=== PATIENT | female | born 1955 | race African-American/Black ===

== ENCOUNTER 2017-03-23 06:36 | Inpatient (IN) | payer MEDICAID, OTHER ==
[~2017-03-23] VITALS: Ht 175.3 cm; Wt 99.8 kg
[~2017-03-23 06:36] MED LIST: AMIT25TA9 PO; ASPI-1160 PO; ATOR20TA65 PO; BENA40TA3 PO; CALC-4 PO; HYDR100T26 PO; IBUP100O19 PO; INDA2.5T5 PO; INSLAN SQ; INSU10VI2 SQ; LORA1TAB PO; METO25TA6 PO; NIFE90TA43 PO; SPIR25TA4 PO
[2017-03-23] MEDS ORDERED: SODIUM CHLORIDE 0.9% 1,000 ML IV ONE ×4 (07:06→10:46)
[2017-03-23 08:07] LABS: BASOPHILS % 0.2 % (0.0-2.0); EOSINOPHILS % 0.7 % (0.0-5.0); HEMATOCRIT. 41.2 % (36.0-48.0); HEMOGLOBIN. 13.7 g/dL (12.0-16.0); LYMPHOCYTES % 19.6 % (20.0-50.0); MEAN CORPUSCULAR HEMOGLOBIN 29.6 pg (28.0-32.0); MEAN PLATELET VOLUME 8.5 fl (7.4-10.4); NEUTROPHILS % 74.5 % (40.0-76.0); PLATELET 268 x1000/uL (130-400); RED BLOOD CELL COUNT 4.63 mill/uL (4.2-5.4); RED CELL DISTRIBUTION WIDTH 12.8 % (11.6-14.6)
[2017-03-23 08:15] LABS: PROTHROMBIN TIME 10.7 sec (9.4-11.6)
[2017-03-23 08:24] LABS: CARBON DIOXIDE 27 mEq/L (21-32); CHLORIDE 104 mEq/L (98-107)
[2017-03-23] MEDS ORDERED: VANCOMYCIN 1 G PREMIX 200 ML IV ONE (10:15)
[2017-03-23] MEDS ORDERED: PIPERACILLIN/TAZ 3.375G PREMIX 50 ML IV ONE (10:15)
[2017-03-23 10:48] LABS: CLARITY URINE CLEAR (CLEAR); COLOR URINE DARK YELLOW (YELLOW); GLUCOSE URINE 3+ (NEGATIVE); KETONES URINE NEGATIVE (NEGATIVE); LEUKOCYTE ESTERASE URINE NEGATIVE (NEGATIVE); NITRITE URINE NEGATIVE (NEGATIVE); OCCULT BLOOD URINE NEGATIVE (NEGATIVE); PROTEIN URINE 1+ (NEGATIVE); SPECIFIC GRAVITY URINE 1.022 (1.005-1.030)
[2017-03-23 16:17] VITALS: BP 152/79
[2017-03-23] MEDS ORDERED: BENA20TA3 PO (16:32)
[2017-03-23] MEDS ORDERED: FAMO20TA8 PO (16:34)
[2017-03-23] MEDS ORDERED: ATOR20TA65 PO (16:34)
[2017-03-23] MEDS ORDERED: GLIP10TA10 PO (16:36)
[2017-03-23 16:39] VITALS: BP 152/79
[2017-03-23] MEDS ORDERED: INFLUENZA VIRUS VACCINE 0.5ML SYR IM ONE (16:45)
[2017-03-23] MEDS ORDERED: DEXT 5%/0.45% NACL 1000ML 1,000 ML IV SCH (17:45)
[2017-03-23] MEDS ORDERED: MORPHINE SULFATE 2 MG/ML CPJ (NOT FOR IM USE) IV PRN (19:45)
[2017-03-23] MEDS ORDERED: DEXTROSE 50% WATER 50ML SYRINGE IV PRN (19:45)
[2017-03-23 20:00] VITALS: BP 158/93
[2017-03-23] MEDS ORDERED: LEVOFLOXACIN 500MG PREMIX 100 ML IV SCH (20:00)
[2017-03-23] MEDS: POTASSIUM CHLORIDE 10MEQ TABLET SR PO SCH (20:36)
[2017-03-23] MEDS: LOSARTAN POTASSIUM 50 MG TABLET PO SCH (20:37)
[2017-03-23] MEDS ORDERED: INSULIN LISPRO 100 UNITS/ML SUBCUT SCH (21:00)
[2017-03-23] MEDS ORDERED: INSULIN LISPRO 100 UNITS/ML SUBCUT NR (21:28)
[2017-03-23] MEDS: BLOOD SUGAR DIAGNOSTIC STRIP TEST SCH (21:32)
[2017-03-23] MEDS: METRONIDAZOLE 500MG TABLET PO SCH (21:41)
[2017-03-23] MEDS: ENOXAPARIN 30MG/0.3ML SYR SUBCUT SCH (21:43)
[2017-03-24] VITALS: BP 166/91
[2017-03-24] MEDS ORDERED: CLONIDINE 0.2MG TABLET PO PRN (01:15)
[2017-03-24 04:00] VITALS: BP 127/76
[2017-03-24] MEDS: METRONIDAZOLE 500MG TABLET PO SCH ×2 (06:59→13:46)
[2017-03-24] MEDS: BLOOD SUGAR DIAGNOSTIC STRIP TEST SCH ×3 (06:59→18:02)
[2017-03-24] MEDS ORDERED: INSULIN LISPRO 100 UNITS/ML SUBCUT NR (07:00)
[2017-03-24 07:05] LABS: BASOPHILS % 0.2 % (0.0-2.0); EOSINOPHILS % 0.1 % (0.0-5.0); HEMATOCRIT. 40.5 % (36.0-48.0); HEMOGLOBIN. 13.4 g/dL (12.0-16.0); LYMPHOCYTES % 16.1 % (20.0-50.0); MEAN CORPUSCULAR HEMOGLOBIN 29.5 pg (28.0-32.0); MEAN CORPUSCULAR VOLUME 89.4 fL (81.0-99.0); MEAN PLATELET VOLUME 8.9 fl (7.4-10.4); MONOCYTES % 7.8 % (2.0-8.0); NEUTROPHILS % 75.8 % (40.0-76.0); PLATELET 238 x1000/uL (130-400); RED BLOOD CELL COUNT 4.53 mill/uL (4.2-5.4); RED CELL DISTRIBUTION WIDTH 12.6 % (11.6-14.6)
[2017-03-24] MEDS: INSULIN LISPRO 100 UNITS/ML SUBCUT SCH ×3 (07:15→18:04)
[2017-03-24 07:54] LABS: CARBON DIOXIDE 27 mEq/L (21-32); CHLORIDE 96 mEq/L (98-107)
[2017-03-24 08:00] VITALS: BP 150/81
[2017-03-24] MEDS ORDERED: METOPROLOL TARTRATE 50MG TABLET PO SCH (09:00)
[2017-03-24] MEDS: ENOXAPARIN 30MG/0.3ML SYR SUBCUT SCH (09:30)
[2017-03-24] MEDS: LOSARTAN POTASSIUM 50 MG TABLET PO SCH ×2 (09:35→17:00)
[2017-03-24] MEDS: POTASSIUM CHLORIDE 10MEQ TABLET SR PO SCH (09:35)
[2017-03-24 12:00] VITALS: BP 116/70
[2017-03-24] MEDS ORDERED: INFLUENZA VIRUS VACCINE 0.5ML SYR IM ONE (14:00)
[2017-03-24 16:00] VITALS: BP 115/64
[2017-03-24 17:23] VITALS: BP 115/64
== END 2017-03-24 18:10 | disposition home or self-care (01) | DRG 720 ==
LOC: ER 06:36 → CANRESERV 09:58 → ENRESERV 09:58 → 5WST 11:41 → EDBEDREQ 11:43 → EDBEDREQTM 11:43 → EDBEDREQSVC 11:43 → ENRESERV 14:11
PROVIDERS: ADMIT Internal Medicine; ATTEND Internal Medicine
DX: A41.9 Sepsis, unspecified organism (principal); E11.65 Type 2 diabetes mellitus with hyperglycemia; I11.9 Hypertensive heart disease without heart failure; I25.10 Atherosclerotic heart disease of native coronary artery without angina pectoris; E78.00 Pure hypercholesterolemia, unspecified; K52.9 Noninfective gastroenteritis and colitis, unspecified; Z79.899 Other long term (current) drug therapy; Z79.82 Long term (current) use of aspirin; K92.1 Melena; D25.9 Leiomyoma of uterus, unspecified
CPT/HCPCS: 36415; 71010; 74176; 80053; 81001; 82962; 83605; 83690; 84443; 84484; 85025; 85610; 86850; 86870; 86900; 87040; 87493; 90686; 93005; 96361; 96365; 99291; J1650; J1815; J1956; J2270; J2543; J3370; J3490; J7030

== ENCOUNTER 2017-08-06 15:57 | Emergency (ER) | payer MEDICAID, OTHER ==
[~2017-08-06] VITALS: Ht 167.6 cm; Wt 90.0 kg
[~2017-08-06 15:57] MED LIST changes: -AMIT25TA9 PO; +BENA20TA3 PO; -BENA40TA3 PO; +FAMO20TA8 PO; +GLIP10TA10 PO; -IBUP100O19 PO; -INSLAN SQ; -LORA1TAB PO
[2017-08-06] MEDS ORDERED: SODIUM CHLORIDE 0.9% 1,000 ML IV ONE ×2 (17:00→17:15)
[2017-08-06 17:28] LABS: BASOPHILS % 0.9 % (0.0-2.0); EOSINOPHILS % 2.1 % (0.0-5.0); HEMATOCRIT. 35.3 % (36.0-48.0); HEMOGLOBIN. 12.1 g/dL (12.0-16.0); LYMPHOCYTES % 33.3 % (20.0-50.0); MEAN CORPUSCULAR HEMOGLOBIN 29.8 pg (28.0-32.0); MEAN PLATELET VOLUME 8.3 fl (7.4-10.4); MONOCYTES % 7.5 % (2.0-8.0); NEUTROPHILS % 56.2 % (40.0-76.0); PLATELET 283 x1000/uL (130-400); RED BLOOD CELL COUNT 4.06 mill/uL (4.2-5.4); RED CELL DISTRIBUTION WIDTH 12.5 % (11.6-14.6)
[2017-08-06 17:40] LABS: CHLORIDE 102 mEq/L (98-107)
[2017-08-06 17:46] LABS: BETA HYDROXYBUTYRATE 0.2 mMol/L (0.0-0.3)
[2017-08-06 18:12] LABS: CLARITY URINE CLEAR (CLEAR); COLOR URINE DARK YELLOW (YELLOW); KETONES URINE 1+ (NEGATIVE); LEUKOCYTE ESTERASE URINE TRACE (NEGATIVE); NITRITE URINE NEGATIVE (NEGATIVE); OCCULT BLOOD URINE NEGATIVE (NEGATIVE); PROTEIN URINE NEGATIVE (NEGATIVE); SPECIFIC GRAVITY URINE 1.028 (1.005-1.030)
[2017-08-06 19:39] VITALS: BP 139/81
== END 2017-08-06 21:16 | disposition home or self-care (01) ==
LOC: ER 16:09
DX: R05 Cough (principal); R10.13 Epigastric pain; R10.33 Periumbilical pain; R06.02 Shortness of breath; E11.65 Type 2 diabetes mellitus with hyperglycemia; I10 Essential (primary) hypertension; E78.00 Pure hypercholesterolemia, unspecified; Z79.82 Long term (current) use of aspirin; Z79.4 Long term (current) use of insulin
CPT/HCPCS: 36415; 71045; 80053; 81003; 82010; 82962; 83690; 84484; 85025; 96360; 96361; 99285; J7030; Z7610

== ENCOUNTER 2017-08-08 14:09 | Emergency (ER) | payer MEDICAID, OTHER ==
[~2017-08-08] VITALS: Ht 167.6 cm; Wt 110.0 kg
[2017-08-08 16:07] LABS: BASOPHILS % 0.9 % (0.0-2.0); EOSINOPHILS % 2.9 % (0.0-5.0); HEMATOCRIT. 35.5 % (36.0-48.0); HEMOGLOBIN. 11.8 g/dL (12.0-16.0); LYMPHOCYTES % 29.3 % (20.0-50.0); MEAN CORPUSCULAR HEMOGLOBIN 29.1 pg (28.0-32.0); MEAN CORPUSCULAR VOLUME 87.6 fL (81.0-99.0); MEAN PLATELET VOLUME 7.9 fl (7.4-10.4); MONOCYTES % 7.3 % (2.0-8.0); NEUTROPHILS % 59.6 % (40.0-76.0); PLATELET 286 x1000/uL (130-400); RED BLOOD CELL COUNT 4.05 mill/uL (4.2-5.4)
[2017-08-08 16:13] LABS: CHLORIDE 103 mEq/L (98-107)
[2017-08-08 16:29] LABS: PROTHROMBIN TIME 9.9 sec (9.4-11.6)
[2017-08-08] MEDS ORDERED: SODIUM CHLORIDE 0.9% 1,000 ML IV ONE (17:00)
[2017-08-08 17:17] LABS: CLARITY URINE CLEAR (CLEAR); COLOR URINE YELLOW (YELLOW); KETONES URINE NEGATIVE (NEGATIVE); LEUKOCYTE ESTERASE URINE NEGATIVE (NEGATIVE); NITRITE URINE NEGATIVE (NEGATIVE); OCCULT BLOOD URINE NEGATIVE (NEGATIVE); PH URINE 5.5 (4.5-8.0); PROTEIN URINE NEGATIVE (NEGATIVE); SPECIFIC GRAVITY URINE 1.031 (1.005-1.030); UROBILINOGEN URINE 0.2 E.U./dL (0.2-1.0)
[2017-08-08 18:50] VITALS: BP 148/82
== END 2017-08-08 18:58 | disposition home or self-care (01) ==
LOC: ER 14:21
DX: J06.9 Acute upper respiratory infection, unspecified (principal); E11.65 Type 2 diabetes mellitus with hyperglycemia; E11.22 Type 2 diabetes mellitus with diabetic chronic kidney disease; E78.00 Pure hypercholesterolemia, unspecified; I12.9 Hypertensive chronic kidney disease with stage 1 through stage 4 chronic kidney disease, or unspecified chronic kidney disease; I51.7 Cardiomegaly; N18.9 Chronic kidney disease, unspecified; B34.9 Viral infection, unspecified; D64.9 Anemia, unspecified; D72.829 Elevated white blood cell count, unspecified; I44.0 Atrioventricular block, first degree; Z79.4 Long term (current) use of insulin; Z79.82 Long term (current) use of aspirin
CPT/HCPCS: 36415; 71045; 80053; 81003; 83735; 83880; 84484; 85025; 85610; 93005; 96360; 99285; J7030; Z7610

== ENCOUNTER 2018-10-02 11:09 | Inpatient (IN) | payer OTHER ==
[~2018-10-02] VITALS: Ht 165.1 cm; Wt 99.8 kg
[~2018-10-02 11:09] MED LIST changes: +BENA20TA10 PO; -BENA20TA3 PO; +INSU100V3 SUBCUT; -INSU10VI2 SQ; +NPH,100V SQ; -SPIR25TA4 PO; +SPIR25TA6 PO
[2018-10-02] MEDS ORDERED: SODIUM CHLORIDE 0.9% 500 ML IV ONE (11:38)
[2018-10-02] MEDS ORDERED: ONDANSETRON HCL 4MG/2ML INJ IV STA (11:38)
[2018-10-02] MEDS ORDERED: HYDRALAZINE 20MG/ML VIAL IV ONE ×2 (11:45→17:15)
[2018-10-02 12:00] LABS: BASOPHILS % 0.4 % (0.0-2.0); EOSINOPHILS % 1.7 % (0.0-5.0); HEMOGLOBIN. 13.1 g/dL (12.0-16.0); LYMPHOCYTES % 30.2 % (20.0-50.0); MEAN CORPUSCULAR HEMOGLOBIN 28.2 pg (28.0-32.0); MEAN CORPUSCULAR VOLUME 86.1 fL (81.0-99.0); MEAN PLATELET VOLUME 8.5 fl (7.4-10.4); MONOCYTES % 6.3 % (2.0-8.0); NEUTROPHILS % 61.4 % (40.0-76.0); PLATELET 244 x1000/uL (130-400); RED BLOOD CELL COUNT 4.65 mill/uL (4.2-5.4); RED CELL DISTRIBUTION WIDTH 13.2 % (11.6-14.6)
[2018-10-02 12:01] LABS: CHLORIDE 105 mEq/L (98-107)
[2018-10-02 12:05] LABS: ETHANOL BLOOD < 10 mg/dL
[2018-10-02 12:15] LABS: INR 0.9; PARTIAL THROMBOPLASTIN TIME 43.4 sec (23.4-31.0); PROTHROMBIN TIME 9.8 sec (9.6-11.0)
[2018-10-02] MEDS ORDERED: POTASSIUM CHLORIDE 20MEQ TABLET SR PO ONE (13:15)
[2018-10-02] MEDS ORDERED: DILTIAZEM HCL 5MG/ML 5ML VIAL IV ONE (17:30)
[2018-10-02] MEDS ORDERED: DILTIAZEM HCL 30MG TABLET PO ONE (17:30)
[2018-10-02 18:07] LABS: CLARITY URINE CLEAR (CLEAR); COLOR URINE YELLOW (YELLOW); KETONES URINE 2+ (NEGATIVE); LEUKOCYTE ESTERASE URINE NEGATIVE (NEGATIVE); NITRITE URINE NEGATIVE (NEGATIVE); OCCULT BLOOD URINE NEGATIVE (NEGATIVE); PH URINE 5.5 (4.5-8.0); PROTEIN URINE 4+ (NEGATIVE); SPECIFIC GRAVITY URINE 1.026 (1.005-1.030); UROBILINOGEN URINE 0.2 E.U./dL (0.2-1.0)
[2018-10-02 18:25] LABS: *BARBITURATES SCREEN URINE NEGATIVE (NEGATIVE); *BENZODIAZEPINES SCREEN URINE NEGATIVE (NEGATIVE); *COCAINE SCREEN URINE NEGATIVE (NEGATIVE); METHADONE URINE SCREEN NEGATIVE (NEGATIVE); OPIATES URINE SCREEN NEGATIVE (NEGATIVE)
[2018-10-02 18:26] LABS: *AMPHETAMINES SCREEN URINE NEGATIVE (NEGATIVE); CANNABINOID URINE SCREEN NEGATIVE (NEGATIVE); PHENCYCLIDINE URINE SCREEN NEGATIVE (NEGATIVE)
[2018-10-02] MEDS ORDERED: ENOXAPARIN 40MG/0.4ML SYR SUBCUT SCH (22:00)
[2018-10-02] MEDS ORDERED: CLONIDINE 0.1MG TABLET PO PRN (22:00)
[2018-10-02] MEDS ORDERED: ONDANSETRON HCL 4MG/2ML INJ IV PRN (22:00)
[2018-10-02] MEDS ORDERED: DOCUSATE SODIUM 100MG CAPSULE PO PRN (22:00)
[2018-10-02 22:30] VITALS: BP 159/98
[2018-10-02] MEDS: DILTIAZEM HCL 60MG TABLET PO SCH (23:17)
[2018-10-02] MEDS: LEVOFLOXACIN 500MG PREMIX 100 ML IV SCH (23:35)
[2018-10-03] VITALS (7 sets, daily range): BP systolic 116–176; BP diastolic 55–75
[2018-10-03] MEDS ORDERED: DEXTROSE 50% WATER 50ML SYRINGE IV PRN (00:15)
[2018-10-03] MEDS: DILTIAZEM HCL 60MG TABLET PO SCH (05:23)
[2018-10-03 06:15] LABS: BASOPHILS % 0.5 % (0.0-2.0); EOSINOPHILS % 0.1 % (0.0-5.0); HEMATOCRIT. 36.8 % (36.0-48.0); HEMOGLOBIN. 12.1 g/dL (12.0-16.0); LYMPHOCYTES % 13.8 % (20.0-50.0); MEAN CORPUSCULAR VOLUME 88.4 fL (81.0-99.0); MEAN PLATELET VOLUME 9.1 fl (7.4-10.4); MONOCYTES % 5.2 % (2.0-8.0); NEUTROPHILS % 80.4 % (40.0-76.0); PLATELET 256 x1000/uL (130-400); RED BLOOD CELL COUNT 4.17 mill/uL (4.2-5.4)
[2018-10-03 06:39] LABS: CHLORIDE 101 mEq/L (98-107)
[2018-10-03 06:51] LABS: HDL CHOLESTEROL 54 mg/dL (40-59); T4 FREE 1.23 ng/dL (0.76-1.46)
[2018-10-03 06:53] LABS: LDL CHOLESTEROL 61 mg/dL (5-100)
[2018-10-03] MEDS: BLOOD SUGAR DIAGNOSTIC STRIP TEST SCH ×4 (06:53→20:45)
[2018-10-03] MEDS ORDERED: INSULIN LISPRO 100 UNITS/ML SUBCUT NR ×3 (07:15→21:15)
[2018-10-03] MEDS ORDERED: INSULIN LISPRO 100 UNITS/ML SUBCUT SCH (08:10)
[2018-10-03] MEDS: LOSARTAN POTASSIUM 50 MG TABLET PO SCH (09:04)
[2018-10-03] MEDS: ENOXAPARIN 30MG/0.3ML SYR SUBCUT SCH ×2 (09:04→21:25)
[2018-10-03] MEDS ORDERED: INSULIN GLARGINE UD 100 UNITS/ML SYR SUBCUT NR ×2 (13:00→19:00)
[2018-10-03] MEDS: DILTIAZEM HCL 90MG TABLET PO SCH ×2 (13:06→18:14)
[2018-10-03] MEDS: INSULIN LISPRO 100 UNITS/ML SUBCUT SCH ×3 (13:10→20:45)
[2018-10-03 20:40] LABS: CLARITY URINE CLEAR (CLEAR); COLOR URINE YELLOW (YELLOW); KETONES URINE 1+ (NEGATIVE); LEUKOCYTE ESTERASE URINE NEGATIVE (NEGATIVE); NITRITE URINE NEGATIVE (NEGATIVE); OCCULT BLOOD URINE NEGATIVE (NEGATIVE); PROTEIN URINE 4+ (NEGATIVE); SPECIFIC GRAVITY URINE 1.026 (1.005-1.030); UROBILINOGEN URINE 0.2 E.U./dL (0.2-1.0)
[2018-10-03] MEDS: LEVOFLOXACIN 500MG PREMIX 100 ML IV SCH (21:27)
[2018-10-04] VITALS: BP_SYST 124; BP_SYST 132; BP_DIAS 60; BP_DIAS 62; BP_DIAS 64
[2018-10-04] MEDS: DILTIAZEM HCL 90MG TABLET PO SCH ×4 (00:49→17:59)
[2018-10-04 04:00] VITALS: BP 128/65
[2018-10-04 06:26] LABS: BASOPHILS % 0.2 % (0.0-2.0); EOSINOPHILS % 2.9 % (0.0-5.0); HEMATOCRIT. 34.6 % (36.0-48.0); HEMOGLOBIN. 11.3 g/dL (12.0-16.0); LYMPHOCYTES % 39.2 % (20.0-50.0); MEAN CORPUSCULAR HEMOGLOBIN 28.3 pg (28.0-32.0); MEAN CORPUSCULAR VOLUME 86.6 fL (81.0-99.0); MEAN PLATELET VOLUME 8.9 fl (7.4-10.4); MONOCYTES % 8.4 % (2.0-8.0); NEUTROPHILS % 49.3 % (40.0-76.0); PLATELET 237 x1000/uL (130-400); RED CELL DISTRIBUTION WIDTH 13.1 % (11.6-14.6)
[2018-10-04] MEDS: BLOOD SUGAR DIAGNOSTIC STRIP TEST SCH ×3 (06:44→17:59)
[2018-10-04 06:49] LABS: PHOSPHORUS 2.8 mg/dL (2.5-4.9)
[2018-10-04] MEDS: INSULIN LISPRO 100 UNITS/ML SUBCUT SCH ×3 (07:24→18:21)
[2018-10-04 08:00] VITALS: BP_SYST 144; BP_SYST 151; BP_DIAS 71
[2018-10-04] MEDS: ENOXAPARIN 30MG/0.3ML SYR SUBCUT SCH (09:59)
[2018-10-04] MEDS: LOSARTAN POTASSIUM 50 MG TABLET PO SCH (09:59)
[2018-10-04] MEDS ORDERED: INSULIN GLARGINE UD 100 UNITS/ML SYR SUBCUT SCH (10:00)
[2018-10-04 12:00] VITALS: BP 169/62
[2018-10-04] MEDS ORDERED: MAGNESIUM 2 G PREMIX 50 ML IV SCH (12:00)
[2018-10-04] MEDS ORDERED: INSULIN LISPRO 100 UNITS/ML SUBCUT SCH (13:15)
[2018-10-04] MEDS ORDERED: INSULIN LISPRO 100 UNITS/ML SUBCUT NR (13:15)
[2018-10-04] MEDS ORDERED: INSULIN NPH (HUMULIN-N) 100 UNITS/ML 3ML VIAL SUBCUT SCH (14:30)
[2018-10-04 16:00] VITALS: BP 106/70
[2018-10-04] MEDS ORDERED: GLIPIZIDE 10MG TABLET PO SCH (17:00)
[2018-10-04 18:32] VITALS: BP 106/70
[2018-10-05 09:10] LABS: ALPHA-1-GLOBULIN 0.2 g/dL (0.0-0.4); ALPHA-2-GLOBULIN 0.9 g/dL (0.4-1.0); BETA GLOBULIN 1.1 g/dL (0.7-1.3); GAMMA GLOBULINS 0.7 g/dL (0.4-1.8); GLOBULIN TOTAL 2.9 g/dL (2.2-3.9); IMMUNOGLOBULIN A 374 mg/dL (87-352); IMMUNOGLOBULIN G 858 mg/dL (700-1600); IMMUNOGLOBULIN M 88 mg/dL (26-217); M-SPIKE Not Observed g/dL (Not Observed); TOTAL PROTEIN SERUM 5.9 g/dL (6.0-8.5)
[2018-10-05] MEDS ORDERED: INSULIN GLARGINE UD 100 UNITS/ML SYR SUBCUT SCH (10:00)
[2018-10-05 13:16] LABS: ALBUMIN URINE 69.8 % (.); ALPHA-1-GLOBULIN URINE 1.6 % (.); ALPHA-2-GLOBULIN URINE 8.6 % (.); BETA GLOBULIN URINE 9.9 % (.); GAMMA GLOBULIN URINE 10.1 % (.); TOTAL PROTEIN RANDOM URINE 511.2 mg/dL (Not Estab.)
[2018-10-06 08:24] LABS: COMPLEMENT C3 161 mg/dL (82-167)
== END 2018-10-04 19:08 | disposition home or self-care (01) | DRG 48 ==
LOC: ER 11:09 → EDBEDREQ 13:50 → CANBEDREQ 15:54 → 7WST 18:21 → ENRESERV 19:32
PROVIDERS: ADMIT Internal Medicine; ATTEND Internal Medicine
DX: G90.8 Other disorders of autonomic nervous system (principal); N17.9 Acute kidney failure, unspecified; E44.0 Moderate protein-calorie malnutrition; E11.21 Type 2 diabetes mellitus with diabetic nephropathy; E11.65 Type 2 diabetes mellitus with hyperglycemia; E87.6 Hypokalemia; I16.0 Hypertensive urgency; E66.01 Morbid (severe) obesity due to excess calories; E78.5 Hyperlipidemia, unspecified; I12.9 Hypertensive chronic kidney disease with stage 1 through stage 4 chronic kidney disease, or unspecified chronic kidney disease; N18.2 Chronic kidney disease, stage 2 (mild); I25.10 Atherosclerotic heart disease of native coronary artery without angina pectoris; D72.829 Elevated white blood cell count, unspecified; E78.00 Pure hypercholesterolemia, unspecified; R00.0 Tachycardia, unspecified; K58.9 Irritable bowel syndrome, unspecified; R74.8 Abnormal levels of other serum enzymes; Z82.49 Family history of ischemic heart disease and other diseases of the circulatory system; Z83.3 Family history of diabetes mellitus; Z79.899 Other long term (current) drug therapy; Z79.82 Long term (current) use of aspirin; Z79.4 Long term (current) use of insulin; I25.2 Old myocardial infarction; Z68.36 Body mass index [BMI] 36.0-36.9, adult
CPT/HCPCS: 36415; 71045; 76770; 80048; 80061; 80305; 80320; 82570; 82784; 82962; 83036; 83735; 83880; 84100; 84155; 84156; 84165; 84166; 84439; 84443; 84484; 85379; 86160; 86334; 93005; 93306; 93880; 96361; 96374; 96375; 97162; 99285; J0360; J1650; J1815; J1956; J2405; J3475; J3490; J7040; G0480

== ENCOUNTER 2019-03-08 22:40 | Emergency (ER) | payer OTHER ==
[~2019-03-08] VITALS: Ht 165.1 cm; Wt 127.0 kg
[~2019-03-08 22:40] MED LIST changes: -BENA20TA10 PO; -INDA2.5T5 PO; -NIFE90TA43 PO; -SPIR25TA6 PO
[2019-03-08] MEDS ORDERED: ONDANSETRON HCL 4MG/2ML INJ IV STA (23:10)
[2019-03-08] MEDS ORDERED: SODIUM CHLORIDE 0.9% 1,000 ML IV ONE (23:10)
[2019-03-08 23:59] LABS: BASOPHILS % 0.5 % (0.0-2.0); EOSINOPHILS % 0.7 % (0.0-5.0); HEMATOCRIT. 39.6 % (36.0-48.0); HEMOGLOBIN. 13.1 g/dL (12.0-16.0); LYMPHOCYTES % 13.7 % (20.0-50.0); MEAN CORPUSCULAR HEMOGLOBIN 29.2 pg (28.0-32.0); MEAN CORPUSCULAR VOLUME 88.3 fL (81.0-99.0); MEAN PLATELET VOLUME 8.8 fl (7.4-10.4); MONOCYTES % 3.8 % (2.0-8.0); NEUTROPHILS % 81.3 % (40.0-76.0); PLATELET 268 x1000/uL (130-400); RED BLOOD CELL COUNT 4.49 mill/uL (4.2-5.4); RED CELL DISTRIBUTION WIDTH 12.7 % (11.6-14.6)
[2019-03-09 00:05] LABS: CLARITY URINE CLEAR (CLEAR); COLOR URINE YELLOW (YELLOW); KETONES URINE NEGATIVE (NEGATIVE); LEUKOCYTE ESTERASE URINE 1+ (NEGATIVE); NITRITE URINE NEGATIVE (NEGATIVE); OCCULT BLOOD URINE NEGATIVE (NEGATIVE); PROTEIN URINE 3+ (NEGATIVE); SPECIFIC GRAVITY URINE 1.018 (1.005-1.030)
[2019-03-09 00:08] LABS: INR 0.9; PROTHROMBIN TIME 9.6 sec (9.6-11.0)
[2019-03-09 00:09] LABS: CHLORIDE 102 mEq/L (98-107)
[2019-03-09 04:05] VITALS: BP 161/70
== END 2019-03-09 04:10 | disposition home or self-care (01) ==
LOC: ER 22:40
DX: N39.0 Urinary tract infection, site not specified (principal); I25.119 Atherosclerotic heart disease of native coronary artery with unspecified angina pectoris; E11.9 Type 2 diabetes mellitus without complications; I10 Essential (primary) hypertension; I25.2 Old myocardial infarction; N28.9 Disorder of kidney and ureter, unspecified; F41.9 Anxiety disorder, unspecified; Z79.899 Other long term (current) drug therapy; Z79.4 Long term (current) use of insulin
CPT/HCPCS: 36415; 74176; 80053; 81003; 83690; 84484; 85025; 85610; 93005; 96374; 99284; J2405; J7030

== ENCOUNTER 2019-05-20 22:05 | Emergency (ER) | payer OTHER ==
[~2019-05-20] VITALS: Ht 162.6 cm; Wt 95.0 kg
[2019-05-20] MEDS ORDERED: SODIUM CHLORIDE 0.9% 1,000 ML IV ONE (23:24)
[2019-05-20 23:43] LABS: BASOPHILS % 0.6 % (0.0-2.0); EOSINOPHILS % 0.2 % (0.0-5.0); HEMATOCRIT. 39.5 % (36.0-48.0); HEMOGLOBIN. 13.2 g/dL (12.0-16.0); LYMPHOCYTES % 14.3 % (20.0-50.0); MEAN CORPUSCULAR HEMOGLOBIN 29.2 pg (28.0-32.0); MEAN CORPUSCULAR VOLUME 86.9 fL (81.0-99.0); MEAN PLATELET VOLUME 8.3 fl (7.4-10.4); NEUTROPHILS % 79.9 % (40.0-76.0); PLATELET 300 x1000/uL (130-400); RED BLOOD CELL COUNT 4.54 mill/uL (4.2-5.4)
[2019-05-20 23:50] LABS: CHLORIDE 104 mEq/L (98-107)
[2019-05-21 01:01] LABS: CLARITY URINE CLOUDY (CLEAR); COLOR URINE DARK YELLOW (YELLOW); KETONES URINE NEGATIVE (NEGATIVE); LEUKOCYTE ESTERASE URINE 1+ (NEGATIVE); NITRITE URINE NEGATIVE (NEGATIVE); OCCULT BLOOD URINE NEGATIVE (NEGATIVE); PROTEIN URINE 3+ (NEGATIVE); SPECIFIC GRAVITY URINE 1.024 (1.005-1.030)
[2019-05-21 09:24] VITALS: BP 153/70
== END 2019-05-21 09:42 | disposition short-term general hospital (02) ==
LOC: ER 22:05 → CANBEDREQ 05-21 13:23
DX: R56.9 Unspecified convulsions (principal); I11.0 Hypertensive heart disease with heart failure; I50.9 Heart failure, unspecified; E11.9 Type 2 diabetes mellitus without complications; D72.829 Elevated white blood cell count, unspecified; I25.2 Old myocardial infarction
CPT/HCPCS: 36415; 70450; 71045; 80053; 81003; 82962; 83605; 84484; 85025; 93005; 96360; 99291; J7030; Z7610

== ENCOUNTER 2020-06-28 16:27 | Inpatient (IN) | payer OTHER ==
[~2020-06-28] VITALS: Ht 165.1 cm; Wt 90.7 kg
[2020-06-28 17:13] LABS: BASOPHILS % 0.6 % (0.0-2.0); EOSINOPHILS % 2.3 % (0.0-5.0); HEMATOCRIT. 34.5 % (36.0-48.0); HEMOGLOBIN. 11.4 g/dL (12.0-16.0); MEAN CORPUSCULAR HEMOGLOBIN 28.6 pg (28.0-32.0); MEAN CORPUSCULAR VOLUME 86.2 fL (81.0-99.0); MEAN PLATELET VOLUME 8.4 fl (7.4-10.4); MONOCYTES % 7.1 % (2.0-8.0); PLATELET 315 x1000/uL (130-400); RED CELL DISTRIBUTION WIDTH 13.4 % (11.6-14.6)
[2020-06-28 17:15] LABS: CHLORIDE 105 mEq/L (98-107)
[2020-06-28 19:20] LABS: CLARITY URINE CLEAR (CLEAR); COLOR URINE YELLOW (YELLOW); KETONES URINE NEGATIVE (NEGATIVE); LEUKOCYTE ESTERASE URINE 1+ (NEGATIVE); NITRITE URINE NEGATIVE (NEGATIVE); OCCULT BLOOD URINE NEGATIVE (NEGATIVE); PH URINE 6.5 (4.5-8.0); PROTEIN URINE 4+ (NEGATIVE); SPECIFIC GRAVITY URINE 1.016 (1.005-1.030); UROBILINOGEN URINE 0.2 E.U./dL (0.2-1.0)
[2020-06-28] MEDS ORDERED: NITROFURANTOIN 100MG M/M CAPSULE PO NR (23:15)
[2020-06-28] MEDS ORDERED: POTASSIUM CHLORIDE 20MEQ TABLET SR PO NR (23:15)
[2020-06-29] VITALS (7 sets, daily range): BP systolic 127–182; BP diastolic 67–90
[2020-06-29] MEDS ORDERED: CLONIDINE 0.2MG TABLET PO PRN (03:30)
[2020-06-29] MEDS: BLOOD SUGAR DIAGNOSTIC STRIP TEST SCH ×5 (06:00→20:29)
[2020-06-29] MEDS: HYDRALAZINE HCL 50MG TABLET PO SCH ×3 (06:16→21:05)
[2020-06-29] MEDS ORDERED: ASPIRIN 81MG TABLET PO SCH (09:00)
[2020-06-29] MEDS ORDERED: HYDROCODONE/ACETAMINOPHEN 5/325MG TABLET PO PRN (10:15)
[2020-06-29] MEDS ORDERED: NITROGLYCERIN 0.4MG TABLET SL SL PRN (10:15)
[2020-06-29] MEDS ORDERED: CEFTRIAXONE 1 G PREMIX 50 ML IV SCH (10:15)
[2020-06-29] MEDS ORDERED: ACETAMINOPHEN 650MG SUPP PR PRN (10:15)
[2020-06-29] MEDS ORDERED: BISACODYL 10MG SUPP PR PRN (10:15)
[2020-06-29] MEDS ORDERED: LORAZEPAM 2MG/ML CPJ IV PRN (10:15)
[2020-06-29] MEDS ORDERED: ACETAMINOPHEN 325MG TABLET PO PRN (10:15)
[2020-06-29] MEDS ORDERED: HYDRALAZINE 20MG/ML VIAL IV PRN (10:15)
[2020-06-29] MEDS ORDERED: IPRATROPIUM/ALBUTEROL 0.5-3(2.5)MG/3ML NEB HHN PRN (10:15)
[2020-06-29] MEDS: ASPIRIN 81MG TABLET PO SCH (10:25)
[2020-06-29] MEDS: PANTOPRAZOLE SODIUM 40 MG/VIAL IV SCH (10:25)
[2020-06-29] MEDS: ENOXAPARIN 30MG/0.3ML SYR SUBCUT SCH (10:25)
[2020-06-29] MEDS ORDERED: ALLO100T MT (11:39)
[2020-06-29] MEDS ORDERED: OMEP20CA14 MT (11:39)
[2020-06-29] MEDS ORDERED: MAGN200T5 PO (11:39)
[2020-06-29] MEDS ORDERED: TELM40TA7 MT (11:39)
[2020-06-29] MEDS ORDERED: AMIT25TA9 MT (11:39)
[2020-06-29] MEDS ORDERED: AMLO10TA80 PO (11:39)
[2020-06-29] MEDS ORDERED: FURO40TA5 PO (11:39)
[2020-06-29 11:46] LABS: BG BASE EXCESS 3.9 mmol/L (-2.0-2.0); BG CARBOXYHEMOGLOBIN 0.3 % (0.5-1.5); BG DEOXYHEMOGLOBIN 4.4 % (0.0-5.0); BG FRACTION INSPIRED OXYGEN 21; BG HCO3 ACT 28.7 mmol/L (22.0-26.0); BG METHEMOGLOBIN 0.1 % (0.0-1.5); BG OXYGEN SATURATION 95.6 % (92.0-98.5); BG OXYHEMOGLOBIN 95.2 % (94.0-97.0); BG PCO2 43.9 mmHg (35.0-45.0); BG PH 7.433 (7.350-7.450); BG SAMPLE SITE RIGHT RADIAL; BG TOTAL HEMOGLOBIN 11.9 g/dL (12.0-18.0); BG VENT MODE ROOM AIR
[2020-06-29] MEDS: CEFTRIAXONE 1,000 MG in DEXTROSE 5% WATER 50 ML IV SCH (11:58)
[2020-06-29] MEDS: INSULIN LISPRO 100 UNITS/ML SUBCUT SCH ×3 (11:58→20:36)
[2020-06-29] MEDS ORDERED: DEXTROSE 50% WATER 50ML SYRINGE IV PRN (12:00)
[2020-06-29] MEDS ORDERED: REGADENOSON 0.4 MG/5 ML IV SCH (12:30)
[2020-06-29] MEDS: AMLODIPINE 10MG TABLET PO SCH (14:53)
[2020-06-29] MEDS: ALLOPURINOL 100 MG TABLET PO SCH (14:54)
[2020-06-29 15:29] LABS: BASOPHILS % 0.7 % (0.0-2.0); EOSINOPHILS % 2.7 % (0.0-5.0); HEMATOCRIT. 32.9 % (36.0-48.0); HEMOGLOBIN. 10.6 g/dL (12.0-16.0); LYMPHOCYTES % 30.6 % (20.0-50.0); MEAN CORPUSCULAR VOLUME 86.7 fL (81.0-99.0); MEAN PLATELET VOLUME 8.7 fl (7.4-10.4); MONOCYTES % 7.1 % (2.0-8.0); NEUTROPHILS % 58.9 % (40.0-76.0); PLATELET 304 x1000/uL (130-400); RED BLOOD CELL COUNT 3.79 mill/uL (4.2-5.4); RED CELL DISTRIBUTION WIDTH 13.4 % (11.6-14.6)
[2020-06-29 15:45] LABS: CHLORIDE 104 mEq/L (98-107)
[2020-06-29 15:53] LABS: D-DIMER 0.98 mg/L FEU (<0.50); LDL CHOLESTEROL 70 mg/dL (5-100); PROTHROMBIN TIME 10.8 sec (9.6-11.0)
[2020-06-29 15:55] LABS: HDL CHOLESTEROL 39 mg/dL (40-59); T4 FREE 1.21 ng/dL (0.76-1.46)
[2020-06-29] MEDS: CALCIUM CARBONATE/VITAMIN D3 500MG TABLET PO SCH (17:49)
[2020-06-29 19:42] LABS: *BENZODIAZEPINES SCREEN URINE NEGATIVE (NEGATIVE); *COCAINE SCREEN URINE NEGATIVE (NEGATIVE); METHADONE URINE SCREEN NEGATIVE (NEGATIVE); OPIATES URINE SCREEN NEGATIVE (NEGATIVE)
[2020-06-29 19:43] LABS: *AMPHETAMINES SCREEN URINE NEGATIVE (NEGATIVE); *BARBITURATES SCREEN URINE NEGATIVE (NEGATIVE); CANNABINOID URINE SCREEN NEGATIVE (NEGATIVE); PHENCYCLIDINE URINE SCREEN NEGATIVE (NEGATIVE)
[2020-06-29] MEDS: AMITRIPTYLINE 25MG TABLET PO SCH (20:44)
[2020-06-29] MEDS: ATORVASTATIN CALCIUM 20MG TABLET PO SCH (20:44)
[2020-06-29] MEDS ORDERED: ATORVASTATIN CALCIUM 20MG TABLET PO SCH (21:00)
[2020-06-30] VITALS: BP 138/76
[2020-06-30 04:00] VITALS: BP 151/57
[2020-06-30] MEDS: HYDRALAZINE HCL 50MG TABLET PO SCH ×3 (05:49→21:24)
[2020-06-30] MEDS: DEXT 5%/0.45% NACL 1000ML 1,000 ML IV SCH ×2 (06:04→20:08)
[2020-06-30] MEDS: BLOOD SUGAR DIAGNOSTIC STRIP TEST SCH ×4 (06:47→21:24)
[2020-06-30] MEDS: INSULIN LISPRO 100 UNITS/ML SUBCUT SCH ×4 (06:51→17:48)
[2020-06-30 08:00] VITALS: BP 137/68
[2020-06-30] MEDS ORDERED: MAGNESIUM 400 MG PO SCH (09:00)
[2020-06-30] MEDS: ALLOPURINOL 100 MG TABLET PO SCH (09:35)
[2020-06-30] MEDS: AMLODIPINE 10MG TABLET PO SCH (09:36)
[2020-06-30] MEDS: CALCIUM CARBONATE/VITAMIN D3 500MG TABLET PO SCH ×2 (09:36→17:47)
[2020-06-30] MEDS: PANTOPRAZOLE SODIUM 40 MG/VIAL IV SCH (09:36)
[2020-06-30] MEDS: ASPIRIN 81MG TABLET PO SCH (09:36)
[2020-06-30] MEDS: ENOXAPARIN 30MG/0.3ML SYR SUBCUT SCH (09:36)
[2020-06-30] MEDS: MAGNESIUM OXIDE 400MG TABLET PO SCH (09:36)
[2020-06-30] MEDS ORDERED: INSULIN GLARGINE UD 100 UNITS/ML SYR SUBCUT SCH (10:00)
[2020-06-30] MEDS: CEFTRIAXONE 1,000 MG in DEXTROSE 5% WATER 50 ML IV SCH (10:39)
[2020-06-30 12:03] VITALS: BP 152/78
[2020-06-30 16:28] VITALS: BP 123/71
[2020-06-30] MEDS ORDERED: INSU100I32 SQ (18:01)
[2020-06-30] MEDS ORDERED: INSU100I24 SQ (18:01)
[2020-06-30 20:00] VITALS: BP 174/79
[2020-06-30] MEDS: ATORVASTATIN CALCIUM 20MG TABLET PO SCH (21:23)
[2020-06-30] MEDS: AMITRIPTYLINE 25MG TABLET PO SCH (21:23)
[2020-06-30] MEDS: CLONIDINE 0.2MG TABLET PO PRN (21:23)
[2020-06-30] MEDS ORDERED: INSULIN LISPRO 100 UNITS/ML SUBCUT ONE (21:30)
[2020-06-30] MEDS: FUROSEMIDE 40MG TABLET PO SCH (21:38)
[2020-07-01] VITALS: BP 157/76
[2020-07-01 04:00] VITALS: BP 134/73
[2020-07-01] MEDS: FUROSEMIDE 40MG TABLET PO SCH (06:12)
[2020-07-01] MEDS: HYDRALAZINE HCL 50MG TABLET PO SCH ×3 (06:12→21:26)
[2020-07-01] MEDS: BLOOD SUGAR DIAGNOSTIC STRIP TEST SCH ×4 (06:12→21:26)
[2020-07-01] MEDS ORDERED: INSULIN LISPRO 100 UNITS/ML SUBCUT SCH (06:45)
[2020-07-01 08:14] VITALS: BP 142/72
[2020-07-01] MEDS ORDERED: REGADENOSON 0.4 MG/5 ML IV ONE (08:39)
[2020-07-01] MEDS ORDERED: LIDOCAINE HCL/PF 1% 2ML VIAL ONE (09:30)
[2020-07-01] MEDS: PANTOPRAZOLE SODIUM 40 MG/VIAL IV SCH (10:24)
[2020-07-01] MEDS: ASPIRIN 81MG TABLET PO SCH (10:24)
[2020-07-01] MEDS: ALLOPURINOL 100 MG TABLET PO SCH (10:24)
[2020-07-01] MEDS: AMLODIPINE 10MG TABLET PO SCH (10:24)
[2020-07-01] MEDS: MAGNESIUM OXIDE 400MG TABLET PO SCH (10:24)
[2020-07-01] MEDS: CALCIUM CARBONATE/VITAMIN D3 500MG TABLET PO SCH ×2 (10:24→17:15)
[2020-07-01] MEDS: ENOXAPARIN 30MG/0.3ML SYR SUBCUT SCH (10:25)
[2020-07-01] MEDS: CEFTRIAXONE 1,000 MG in DEXTROSE 5% WATER 50 ML IV SCH (10:25)
[2020-07-01] MEDS: INSULIN LISPRO 100 UNITS/ML SUBCUT SCH ×4 (10:28→21:28)
[2020-07-01] MEDS: INSULIN GLARGINE UD 100 UNITS/ML SYR SUBCUT SCH ×2 (10:29→21:28)
[2020-07-01 12:30] VITALS: BP 136/65
[2020-07-01 12:31] LABS: BG BASE EXCESS 1.7 mmol/L (-2.0-2.0); BG CARBOXYHEMOGLOBIN 0.3 % (0.5-1.5); BG DEOXYHEMOGLOBIN 4.7 % (0.0-5.0); BG FRACTION INSPIRED OXYGEN 21; BG HCO3 ACT 26.4 mmol/L (22.0-26.0); BG METHEMOGLOBIN 0.1 % (0.0-1.5); BG OXYGEN SATURATION 95.3 % (92.0-98.5); BG OXYHEMOGLOBIN 94.9 % (94.0-97.0); BG PCO2 42.1 mmHg (35.0-45.0); BG PH 7.416 (7.350-7.450); BG PO2 79.3 mmHg (75.0-100.0); BG SAMPLE SITE RIGHT BRACHIAL; BG TOTAL HEMOGLOBIN 11.4 g/dL (12.0-18.0); BG VENT MODE ROOM AIR
[2020-07-01] MEDS ORDERED: LEVOFLOXACIN 500MG PREMIX 100 ML IV NR (13:00)
[2020-07-01 15:10] LABS: BASOPHILS % 0.4 % (0.0-2.0); EOSINOPHILS % 2.5 % (0.0-5.0); HEMATOCRIT. 31.7 % (36.0-48.0); HEMOGLOBIN. 10.5 g/dL (12.0-16.0); LYMPHOCYTES % 22.4 % (20.0-50.0); MEAN CORPUSCULAR HEMOGLOBIN 28.5 pg (28.0-32.0); MEAN PLATELET VOLUME 8.8 fl (7.4-10.4); NEUTROPHILS % 67.7 % (40.0-76.0); PLATELET 318 x1000/uL (130-400); RED BLOOD CELL COUNT 3.69 mill/uL (4.2-5.4); RED CELL DISTRIBUTION WIDTH 13.1 % (11.6-14.6)
[2020-07-01 15:26] LABS: CHLORIDE 104 mEq/L (98-107)
[2020-07-01] MEDS ORDERED: POTASSIUM CHLORIDE 20MEQ TABLET SR PO NR (16:00)
[2020-07-01 16:08] VITALS: BP 135/68
[2020-07-01] MEDS: FUROSEMIDE 40MG/4ML VIAL IVP SCH (17:14)
[2020-07-01] MEDS ORDERED: IPRATROPIUM/ALBUTEROL 0.5-3(2.5)MG/3ML NEB HHN SCH (18:00)
[2020-07-01 20:00] VITALS: BP 152/76
[2020-07-01] MEDS: AMITRIPTYLINE 25MG TABLET PO SCH (21:26)
[2020-07-01] MEDS: ATORVASTATIN CALCIUM 20MG TABLET PO SCH (21:26)
[2020-07-02] VITALS: BP 155/76
[2020-07-02 04:00] VITALS: BP 151/76
[2020-07-02] MEDS: HYDRALAZINE HCL 50MG TABLET PO SCH ×2 (06:25→13:44)
[2020-07-02] MEDS: FUROSEMIDE 40MG/4ML VIAL IVP SCH (06:25)
[2020-07-02] MEDS: BLOOD SUGAR DIAGNOSTIC STRIP TEST SCH ×2 (06:25→12:37)
[2020-07-02 07:01] LABS: BASOPHILS % 0.4 % (0.0-2.0); EOSINOPHILS % 3.4 % (0.0-5.0); HEMATOCRIT. 31.9 % (36.0-48.0); HEMOGLOBIN. 10.5 g/dL (12.0-16.0); LYMPHOCYTES % 27.9 % (20.0-50.0); MEAN CORPUSCULAR VOLUME 85.4 fL (81.0-99.0); MEAN PLATELET VOLUME 8.5 fl (7.4-10.4); MONOCYTES % 6.5 % (2.0-8.0); NEUTROPHILS % 61.8 % (40.0-76.0); PLATELET 297 x1000/uL (130-400); RED BLOOD CELL COUNT 3.74 mill/uL (4.2-5.4); RED CELL DISTRIBUTION WIDTH 13.5 % (11.6-14.6)
[2020-07-02 08:00] VITALS: BP 126/92
[2020-07-02] MEDS ORDERED: ENOXAPARIN 40MG/0.4ML SYR SUBCUT SCH (09:00)
[2020-07-02] MEDS ORDERED: FAMOTIDINE 20MG/2ML VIAL IV SCH (09:00)
[2020-07-02] MEDS: MAGNESIUM OXIDE 400MG TABLET PO SCH (09:38)
[2020-07-02] MEDS: ASPIRIN 81MG TABLET PO SCH (09:38)
[2020-07-02] MEDS: AMLODIPINE 10MG TABLET PO SCH (09:38)
[2020-07-02] MEDS: CALCIUM CARBONATE/VITAMIN D3 500MG TABLET PO SCH (09:38)
[2020-07-02] MEDS: ALLOPURINOL 100 MG TABLET PO SCH (09:39)
[2020-07-02] MEDS: INSULIN LISPRO 100 UNITS/ML SUBCUT SCH ×2 (09:40→12:38)
[2020-07-02] MEDS: INSULIN GLARGINE UD 100 UNITS/ML SYR SUBCUT SCH (10:57)
[2020-07-02 11:52] VITALS: BP 155/80
[2020-07-02] MEDS ORDERED: FURO-151 MT (11:54)
[2020-07-02] MEDS ORDERED: LEVO250T58 MT (11:54)
[2020-07-02] MEDS ORDERED: ASPI-1497 MT (11:54)
[2020-07-02 12:00] VITALS: BP 170/83
[2020-07-02] MEDS: CLONIDINE 0.2MG TABLET PO PRN (12:39)
[2020-07-02] MEDS ORDERED: LEVOFLOXACIN 250MG PREMIX 50 ML IV SCH (14:00)
[2020-07-02 16:03] VITALS: BP 155/80
[2020-07-03] MEDS ORDERED: LEVOFLOXACIN 250MG TABLET PO SCH (11:00)
== END 2020-07-02 17:27 | disposition home or self-care (01) | DRG 203 ==
LOC: ER 16:27 → MICUSO 20:02 → 6WST 06-29 08:24
PROVIDERS: ADMIT Internal Medicine; ATTEND Internal Medicine
DX: M94.0 Chondrocostal junction syndrome [Tietze] (principal); I13.0 Hypertensive heart and chronic kidney disease with heart failure and stage 1 through stage 4 chronic kidney disease, or unspecified chronic kidney disease; I50.33 Acute on chronic diastolic (congestive) heart failure; N39.0 Urinary tract infection, site not specified; E78.5 Hyperlipidemia, unspecified; E87.6 Hypokalemia; N18.9 Chronic kidney disease, unspecified; E11.22 Type 2 diabetes mellitus with diabetic chronic kidney disease; E11.65 Type 2 diabetes mellitus with hyperglycemia; E88.09 Other disorders of plasma-protein metabolism, not elsewhere classified; E66.01 Morbid (severe) obesity due to excess calories; D64.9 Anemia, unspecified; Z20.822 Contact with and (suspected) exposure to COVID-19; M10.9 Gout, unspecified; R06.03 Acute respiratory distress; I25.10 Atherosclerotic heart disease of native coronary artery without angina pectoris; J06.9 Acute upper respiratory infection, unspecified; I25.2 Old myocardial infarction; Z79.82 Long term (current) use of aspirin; Z79.899 Other long term (current) drug therapy; Z68.33 Body mass index [BMI] 33.0-33.9, adult; Z79.4 Long term (current) use of insulin; E44.1 Mild protein-calorie malnutrition
CPT/HCPCS: 36415; 36600; 71045; 73600; 78452; 78582; 80048; 80053; 80061; 80305; 81003; 82375; 82805; 82962; 83036; 83880; 84439; 84443; 84484; 84550; 85025; 85379; 87426; 93005; 93017; 93306; 93970; 97116; 97162; 99285; A9500; A9558; C9113; J0696; J1650; J1815; J1940; J1956; J2785; J3490; J7060

== ENCOUNTER 2021-08-17 14:17 | Inpatient (IN) | payer MEDICARE, MEDICAID ==
[~2021-08-17] VITALS: Ht 165.1 cm; Wt 90.9 kg
[~2021-08-17 14:17] MED LIST changes: +ALLO100T MT; +AMIT25TA9 MT; +AMLO10TA80 PO; +ASPI-1497 MT; +FURO-151 MT; +INSU100I24 SQ; +INSU100I32 SQ; -INSU100V3 SUBCUT; +LEVO250T58 MT; +MAGN200T5 PO; -METO25TA6 PO; +OMEP20CA14 MT; +TELM40TA7 MT
[2021-08-17] MEDS ORDERED: ASPIRIN 81MG TABLET PO ONE (15:00)
[2021-08-17] MEDS ORDERED: NITROGLYCERIN 0.4MG TABLET SL SL PRN (15:00)
[2021-08-17 15:15] LABS: CHLORIDE 97 mEq/L (98-107)
[2021-08-17 15:20] LABS: BASOPHILS % 0.9 % (0.0-2.0); EOSINOPHILS % 0.8 % (0.0-5.0); HEMATOCRIT. 33.7 % (36.0-48.0); MEAN CORPUSCULAR HEMOGLOBIN 29.6 pg (28.0-32.0); MEAN CORPUSCULAR VOLUME 90.4 fL (81.0-99.0); MEAN PLATELET VOLUME 9.2 fl (7.4-10.4); MONOCYTES % 5.9 % (2.0-8.0); NEUTROPHILS % 61.4 % (40.0-76.0); PLATELET 307 x1000/uL (130-400); RED BLOOD CELL COUNT 3.73 mill/uL (4.2-5.4); RED CELL DISTRIBUTION WIDTH 13.1 % (11.6-14.6)
[2021-08-17] MEDS ORDERED: KCL 20MEQ/100ML PREMIX 100 ML IV ONE (16:00)
[2021-08-17] MEDS ORDERED: ENOXAPARIN 60MG/0.6ML SYR SUBCUT NR (19:00)
[2021-08-17] MEDS ORDERED: MAGNESIUM OXIDE 400MG TABLET PO SCH (19:00)
[2021-08-17 21:30] VITALS: BP 119/66
[2021-08-17 22:00] VITALS: BP 166/70
[2021-08-18] VITALS (13 sets, daily range): BP systolic 111–181; BP diastolic 67–94
[2021-08-18 00:14] LABS: CLARITY URINE CLEAR (CLEAR); COLOR URINE YELLOW (YELLOW); KETONES URINE NEGATIVE (NEGATIVE); LEUKOCYTE ESTERASE URINE NEGATIVE (NEGATIVE); NITRITE URINE NEGATIVE (NEGATIVE); OCCULT BLOOD URINE NEGATIVE (NEGATIVE); PROTEIN URINE 4+ (NEGATIVE); SPECIFIC GRAVITY URINE 1.018 (1.005-1.030); UROBILINOGEN URINE 0.2 E.U./dL (0.2-1.0)
[2021-08-18 00:25] LABS: *AMPHETAMINES SCREEN URINE NEGATIVE (NEGATIVE); *BARBITURATES SCREEN URINE NEGATIVE (NEGATIVE); *BENZODIAZEPINES SCREEN URINE NEGATIVE (NEGATIVE); *COCAINE SCREEN URINE NEGATIVE (NEGATIVE); METHADONE URINE SCREEN NEGATIVE (NEGATIVE)
[2021-08-18 00:26] LABS: CANNABINOID URINE SCREEN NEGATIVE (NEGATIVE); OPIATES URINE SCREEN NEGATIVE (NEGATIVE); PHENCYCLIDINE URINE SCREEN NEGATIVE (NEGATIVE)
[2021-08-18] MEDS ORDERED: POTASSIUM CHLORIDE 20MEQ TABLET SR PO SCH ×3 (01:00→08:30)
[2021-08-18] MEDS ORDERED: DEXTROSE 50% WATER 50ML SYRINGE IV PRN (01:00)
[2021-08-18] MEDS: CLONIDINE 0.1MG TABLET PO PRN (01:56)
[2021-08-18 03:35] LABS: BASOPHILS % 0.6 % (0.0-2.0); EOSINOPHILS % 0.9 % (0.0-5.0); HEMATOCRIT. 27.3 % (36.0-48.0); HEMOGLOBIN. 9.3 g/dL (12.0-16.0); LYMPHOCYTES % 29.6 % (20.0-50.0); MEAN CORPUSCULAR HEMOGLOBIN 30.1 pg (28.0-32.0); MEAN CORPUSCULAR VOLUME 88.7 fL (81.0-99.0); MEAN PLATELET VOLUME 9.1 fl (7.4-10.4); MONOCYTES % 5.9 % (2.0-8.0); PLATELET 238 x1000/uL (130-400); RED BLOOD CELL COUNT 3.08 mill/uL (4.2-5.4); RED CELL DISTRIBUTION WIDTH 13.1 % (11.6-14.6)
[2021-08-18 03:43] LABS: CREATINE KINASE MB FRACTION 3.5 ng/mL (0.5-3.6)
[2021-08-18] MEDS: PANTOPRAZOLE 40MG DR TABLET PO SCH (06:52)
[2021-08-18] MEDS: BLOOD SUGAR DIAGNOSTIC STRIP TEST SCH ×4 (06:53→21:32)
[2021-08-18] MEDS ORDERED: INSULIN LISPRO 100 UNITS/ML SUBCUT SCH ×2 (07:20)
[2021-08-18] MEDS ORDERED: MAGNESIUM OXIDE 400MG TABLET PO SCH (09:00)
[2021-08-18] MEDS ORDERED: INSU100V34 SQ (09:16)
[2021-08-18] MEDS ORDERED: NITR0.4T49 SL (09:16)
[2021-08-18] MEDS ORDERED: ONDA4TAB5 PO (09:16)
[2021-08-18] MEDS ORDERED: ISOS60TA76 PO (09:16)
[2021-08-18] MEDS ORDERED: METO2.5T2 PO (09:16)
[2021-08-18] MEDS ORDERED: DOCU100T PO (09:16)
[2021-08-18] MEDS ORDERED: INSU100I24 SQ (09:16)
[2021-08-18] MEDS ORDERED: METO-539 PO (09:16)
[2021-08-18] MEDS: HEPARIN 5000 UNITS/ML VIAL SUBCUT SCH ×2 (09:34→21:31)
[2021-08-18] MEDS ORDERED: POTASSIUM CHLORIDE 20MEQ TABLET SR PO NR (11:00)
[2021-08-18] MEDS ORDERED: CEFTRIAXONE 1 G PREMIX 50 ML IV SCH (11:15)
[2021-08-18] MEDS ORDERED: INSULIN LISPRO 100 UNITS/ML SUBCUT NR (11:15)
[2021-08-18 11:34] LABS: BG BASE EXCESS 0.2 mmol/L (-2.0-2.0); BG CARBOXYHEMOGLOBIN 0.3 % (0.5-1.5); BG HCO3 ACT 24.7 mmol/L (22.0-26.0); BG METHEMOGLOBIN 0.3 % (0.0-1.5); BG OXYHEMOGLOBIN 94.4 % (94.0-97.0); BG PCO2 39.6 mmHg (35.0-45.0); BG PH 7.413 (7.350-7.450); BG PO2 79.2 mmHg (75.0-100.0); BG SAMPLE SITE RIGHT BRACHIAL; BG TOTAL HEMOGLOBIN 11.4 g/dL (12.0-18.0); BG VENT MODE ROOM AIR
[2021-08-18] MEDS: NEBIVOLOL HCL 5 MG TABLET PO SCH (11:43)
[2021-08-18] MEDS: AMLODIPINE 5MG TABLET PO SCH (11:44)
[2021-08-18] MEDS: INSULIN LISPRO 100 UNITS/ML SUBCUT SCH ×3 (12:44→21:00)
[2021-08-18 12:50] LABS: PROTHROMBIN TIME 10.4 sec (9.6-11.0)
[2021-08-18] MEDS ORDERED: INSULIN GLARGINE 100 UNITS/ML SUBCUT NR (13:00)
[2021-08-18] MEDS: CEFTRIAXONE 1,000 MG in DEXTROSE 5% WATER 50 ML IV SCH (13:43)
[2021-08-18] MEDS ORDERED: HYDROCODONE/ACETAMINOPHEN 5/325MG TABLET PO PRN (13:45)
[2021-08-18] MEDS ORDERED: ONDANSETRON HCL 4MG/2ML INJ IV PRN (13:45)
[2021-08-18] MEDS ORDERED: BISACODYL 10MG SUPP PR PRN (13:45)
[2021-08-18] MEDS ORDERED: IPRATROPIUM/ALBUTEROL 0.5-3(2.5)MG/3ML NEB HHN PRN (13:45)
[2021-08-18 17:12] LABS: HEMATOCRIT 31.1 % (36.0-48.0); HEMOGLOBIN 10.4 g/dL (12.0-16.0)
[2021-08-18 17:43] LABS: TOTAL IRON BINDING CAPACITY 169 ug/dL (250-450)
[2021-08-18] MEDS: INSULIN GLARGINE 100 UNITS/ML SUBCUT SCH (21:32)
[2021-08-18] MEDS: ATORVASTATIN CALCIUM 20MG TABLET PO SCH (21:33)
[2021-08-19] VITALS (18 sets, daily range): BP systolic 119–189; BP diastolic 51–91
[2021-08-19] MEDS: PANTOPRAZOLE 40MG DR TABLET PO SCH (06:22)
[2021-08-19] MEDS: CLONIDINE 0.1MG TABLET PO PRN ×2 (06:26→16:35)
[2021-08-19] MEDS: BLOOD SUGAR DIAGNOSTIC STRIP TEST SCH ×4 (06:54→20:47)
[2021-08-19] MEDS: INSULIN LISPRO 100 UNITS/ML SUBCUT SCH ×4 (07:20→20:48)
[2021-08-19 08:17] LABS: PHOSPHORUS 2.8 mg/dL (2.5-4.9)
[2021-08-19 08:23] LABS: BASOPHILS % 0.4 % (0.0-2.0); EOSINOPHILS % 3.3 % (0.0-5.0); HEMATOCRIT. 31.7 % (36.0-48.0); HEMOGLOBIN. 10.6 g/dL (12.0-16.0); LYMPHOCYTES % 34.5 % (20.0-50.0); MEAN CORPUSCULAR VOLUME 89.2 fL (81.0-99.0); MONOCYTES % 5.4 % (2.0-8.0); NEUTROPHILS % 56.4 % (40.0-76.0); PLATELET 274 x1000/uL (130-400); RED BLOOD CELL COUNT 3.55 mill/uL (4.2-5.4); RED CELL DISTRIBUTION WIDTH 13.3 % (11.6-14.6)
[2021-08-19] MEDS ORDERED: REGADENOSON 0.4 MG/5 ML IV ONE ×2 (08:30→08:46)
[2021-08-19] MEDS ORDERED: POTASSIUM CHLORIDE 20MEQ TABLET SR PO NR (09:30)
[2021-08-19] MEDS ORDERED: MAGNESIUM 2 G PREMIX 50 ML IV NR (11:00)
[2021-08-19] MEDS: NEBIVOLOL HCL 5 MG TABLET PO SCH (11:06)
[2021-08-19] MEDS: FUROSEMIDE 40MG TABLET PO SCH ×2 (11:06→20:46)
[2021-08-19] MEDS: AMLODIPINE 5MG TABLET PO SCH (11:07)
[2021-08-19] MEDS: HEPARIN 5000 UNITS/ML VIAL SUBCUT SCH ×2 (11:07→20:46)
[2021-08-19] MEDS: CEFTRIAXONE 1,000 MG in DEXTROSE 5% WATER 50 ML IV SCH (13:38)
[2021-08-19] MEDS: ALLOPURINOL 100 MG TABLET PO SCH (16:35)
[2021-08-19] MEDS ORDERED: INSULIN LISPRO 100 UNITS/ML SUBCUT NR (17:30)
[2021-08-19] MEDS: MAGNESIUM OXIDE 400MG TABLET PO SCH (20:46)
[2021-08-19] MEDS: POTASSIUM CHLORIDE 20MEQ TABLET SR PO SCH (20:46)
[2021-08-19] MEDS: ATORVASTATIN CALCIUM 20MG TABLET PO SCH (20:46)
[2021-08-19] MEDS: INSULIN GLARGINE 100 UNITS/ML SUBCUT SCH (20:47)
[2021-08-20] VITALS (14 sets, daily range): BP systolic 126–177; BP diastolic 44–100
[2021-08-20] MEDS: CLONIDINE 0.1MG TABLET PO PRN (05:16)
[2021-08-20] MEDS: BLOOD SUGAR DIAGNOSTIC STRIP TEST SCH ×2 (06:42→11:50)
[2021-08-20 07:10] LABS: PHOSPHORUS 3.5 mg/dL (2.5-4.9)
[2021-08-20 07:17] LABS: BASOPHILS % 0.5 % (0.0-2.0); EOSINOPHILS % 4.7 % (0.0-5.0); HEMATOCRIT. 28.1 % (36.0-48.0); HEMOGLOBIN. 9.6 g/dL (12.0-16.0); LYMPHOCYTES % 24.8 % (20.0-50.0); MEAN CORPUSCULAR HEMOGLOBIN 30.3 pg (28.0-32.0); MEAN CORPUSCULAR VOLUME 88.4 fL (81.0-99.0); MEAN PLATELET VOLUME 9.6 fl (7.4-10.4); MONOCYTES % 6.5 % (2.0-8.0); NEUTROPHILS % 63.5 % (40.0-76.0); PLATELET 255 x1000/uL (130-400); RED BLOOD CELL COUNT 3.18 mill/uL (4.2-5.4); RED CELL DISTRIBUTION WIDTH 13.1 % (11.6-14.6)
[2021-08-20] MEDS: INSULIN LISPRO 100 UNITS/ML SUBCUT SCH ×2 (07:52→12:29)
[2021-08-20] MEDS: MAGNESIUM OXIDE 400MG TABLET PO SCH (08:35)
[2021-08-20] MEDS: NEBIVOLOL HCL 5 MG TABLET PO SCH (08:35)
[2021-08-20] MEDS: AMLODIPINE 5MG TABLET PO SCH (08:35)
[2021-08-20] MEDS: POTASSIUM CHLORIDE 20MEQ TABLET SR PO SCH (08:35)
[2021-08-20] MEDS: FUROSEMIDE 40MG TABLET PO SCH (08:36)
[2021-08-20] MEDS: HEPARIN 5000 UNITS/ML VIAL SUBCUT SCH (08:42)
[2021-08-20] MEDS ORDERED: FAMOTIDINE 20MG TABLET PO SCH (09:00)
[2021-08-20] MEDS: ALLOPURINOL 100 MG TABLET PO SCH (12:28)
[2021-08-20] MEDS: CEFTRIAXONE 1,000 MG in DEXTROSE 5% WATER 50 ML IV SCH (12:57)
[2021-08-20] MEDS ORDERED: HYDRALAZINE 20MG/ML VIAL IV SCH (14:00)
[2021-08-20] MEDS ORDERED: AMLODIPINE 5MG TABLET PO SCH (17:00)
[2021-08-20] MEDS ORDERED: EPOETIN ALFA 10000UNITS/ML VIAL SUBCUT NR (18:00)
[2021-08-21] MEDS ORDERED: POTASSIUM CHLORIDE 20MEQ TABLET SR PO SCH (09:00)
[2021-08-21] MEDS ORDERED: FUROSEMIDE 40MG TABLET PO SCH (09:00)
== END 2021-08-20 14:15 | disposition home or self-care (01) | DRG 190 ==
LOC: ER 14:17 → EDBEDREQ 17:29 → EDBEDREQTM 17:29 → EDBEDREQSVC 18:36 → ENRESERV 21:03 → 3WST 21:53
PROVIDERS: ADMIT Internal Medicine; ATTEND Internal Medicine
PROC: 4A02XM4 Measurement of Cardiac Total Activity, External Approach (ICD-10-PCS; principal; 2021-08-20)
PROC: 3E033HZ Introduction of Radioactive Substance into Peripheral Vein, Percutaneous Approach (ICD-10-PCS; 2021-08-20)
DX: I21.4 Non-ST elevation (NSTEMI) myocardial infarction (principal); I50.33 Acute on chronic diastolic (congestive) heart failure; N17.9 Acute kidney failure, unspecified; E43 Unspecified severe protein-calorie malnutrition; E87.1 Hypo-osmolality and hyponatremia; D64.9 Anemia, unspecified; E11.22 Type 2 diabetes mellitus with diabetic chronic kidney disease; E11.65 Type 2 diabetes mellitus with hyperglycemia; E78.5 Hyperlipidemia, unspecified; E87.6 Hypokalemia; I13.0 Hypertensive heart and chronic kidney disease with heart failure and stage 1 through stage 4 chronic kidney disease, or unspecified chronic kidney disease; R06.89 Other abnormalities of breathing; D72.829 Elevated white blood cell count, unspecified; N18.30 Chronic kidney disease, stage 3 unspecified; E83.42 Hypomagnesemia; Z20.822 Contact with and (suspected) exposure to COVID-19; I25.10 Atherosclerotic heart disease of native coronary artery without angina pectoris; Z86.79 Personal history of other diseases of the circulatory system; Z79.82 Long term (current) use of aspirin; Z79.899 Other long term (current) drug therapy; Z79.4 Long term (current) use of insulin; Z68.33 Body mass index [BMI] 33.0-33.9, adult; Z82.49 Family history of ischemic heart disease and other diseases of the circulatory system
CPT/HCPCS: 36415; 36600; 71045; 76770; 78452; 78580; 80048; 80053; 80061; 80305; 81003; 82375; 82550; 82553; 82570; 82805; 82962; 83036; 83540; 83550; 83735; 83880; 84100; 84156; 84484; 85014; 85018; 85025; 85044; 86850; 86870; 86900; 87426; 93005; 93017; 93306; 93970; 97162; 99291; A9500; J0360; J0696; J0885; J1644; J1650; J1815; J2405; J2785; J3475; J3480; J7060

== ENCOUNTER 2022-05-05 15:57 | Inpatient (IN) | payer MEDICARE, MEDICAID ==
[~2022-05-05] VITALS: Ht 165.1 cm; Wt 72.7 kg
[~2022-05-05 15:57] MED LIST changes: -AMLO10TA80 PO; -ASPI-1497 MT; +DOCU100T PO; -FAMO20TA8 PO; -FURO-151 MT; -HYDR100T26 PO; -INSU100I32 SQ; +INSU100V34 SQ; +ISOS60TA76 PO; -LEVO250T58 MT; +NITR0.4T49 SL; -NPH,100V SQ; +ONDA4TAB5 PO; -TELM40TA7 MT
[2022-05-05 18:19] LABS: BASOPHILS % 0.7 % (0.0-2.0); EOSINOPHILS % 2.4 % (0.0-5.0); HEMATOCRIT. 43.7 % (36.0-48.0); HEMOGLOBIN. 14.5 g/dL (12.0-16.0); LYMPHOCYTES % 36.5 % (20.0-50.0); MEAN CORPUSCULAR HEMOGLOBIN 30.2 pg (28.0-32.0); MEAN CORPUSCULAR VOLUME 90.8 fL (81.0-99.0); MEAN PLATELET VOLUME 8.4 fl (7.4-10.4); MONOCYTES % 5.3 % (2.0-8.0); NEUTROPHILS % 55.1 % (40.0-76.0); PLATELET 238 x1000/uL (130-400); RED BLOOD CELL COUNT 4.81 mill/uL (4.2-5.4); RED CELL DISTRIBUTION WIDTH 14.5 % (11.6-14.6)
[2022-05-05 18:28] LABS: CHLORIDE 97 mEq/L (98-107)
[2022-05-06] MEDS ORDERED: HYDRALAZINE 20MG/ML VIAL IV ONE (01:45)
[2022-05-06] MEDS ORDERED: DEXTROSE 50% WATER 50ML SYRINGE IV PRN (09:15)
[2022-05-06] MEDS ORDERED: ACETAMINOPHEN 325MG TABLET PO PRN (09:15)
[2022-05-06] MEDS ORDERED: HYDRALAZINE 20MG/ML VIAL IV PRN (09:15)
[2022-05-06] MEDS: ONDANSETRON HCL 4MG/2ML INJ IV PRN (09:16)
[2022-05-06] MEDS: AMLODIPINE 10MG TABLET PO SCH (09:16)
[2022-05-06] MEDS: BLOOD SUGAR DIAGNOSTIC STRIP TEST SCH ×3 (12:04→21:00)
[2022-05-06] MEDS: INSULIN LISPRO 100 UNITS/ML SUBCUT SCH ×3 (13:01→21:57)
[2022-05-06 15:50] VITALS: BP 188/95
[2022-05-06 15:55] VITALS: BP 188/95
[2022-05-06] MEDS ORDERED: CALC667C PO (16:14)
[2022-05-06] MEDS ORDERED: AMLO10TA80 PO (16:14)
[2022-05-06] MEDS ORDERED: CARV25TA47 PO (16:14)
[2022-05-06] MEDS ORDERED: LOSA50TA41 PO (16:14)
[2022-05-06] MEDS ORDERED: CLON0.3T PO (16:14)
[2022-05-06 16:15] VITALS: BP 203/103
[2022-05-06] MEDS: CLONIDINE 0.3MG TABLET PO SCH (16:50)
[2022-05-06 17:46] VITALS: BP 121/76
[2022-05-06 20:35] VITALS: BP 156/78
[2022-05-06] MEDS ORDERED: IOHEXOL-350 100 ML BOTTLE ONE (21:47)
[2022-05-06] MEDS: LOSARTAN POTASSIUM 50 MG TABLET PO SCH (21:56)
[2022-05-07] VITALS (16 sets, daily range): BP systolic 83–192; BP diastolic 43–89
[2022-05-07] MEDS: BLOOD SUGAR DIAGNOSTIC STRIP TEST SCH ×4 (06:39→20:50)
[2022-05-07] MEDS: INSULIN LISPRO 100 UNITS/ML SUBCUT SCH ×4 (06:39→20:50)
[2022-05-07 06:40] LABS: BASOPHILS % 0.6 % (0.0-2.0); EOSINOPHILS % 1.1 % (0.0-5.0); HEMATOCRIT. 40.5 % (36.0-48.0); HEMOGLOBIN. 13.4 g/dL (12.0-16.0); LYMPHOCYTES % 38.5 % (20.0-50.0); MEAN CORPUSCULAR HEMOGLOBIN 30.3 pg (28.0-32.0); MEAN CORPUSCULAR VOLUME 91.7 fL (81.0-99.0); MEAN PLATELET VOLUME 8.8 fl (7.4-10.4); MONOCYTES % 6.5 % (2.0-8.0); NEUTROPHILS % 53.3 % (40.0-76.0); PLATELET 219 x1000/uL (130-400); RED BLOOD CELL COUNT 4.42 mill/uL (4.2-5.4); RED CELL DISTRIBUTION WIDTH 14.6 % (11.6-14.6)
[2022-05-07] MEDS: AMLODIPINE 10MG TABLET PO SCH (08:03)
[2022-05-07] MEDS: CLONIDINE 0.3MG TABLET PO SCH ×3 (08:03→17:19)
[2022-05-07] MEDS: LOSARTAN POTASSIUM 50 MG TABLET PO SCH ×2 (08:03→20:50)
[2022-05-07 11:50] LABS: PHOSPHORUS 6.3 mg/dL (2.5-4.9)
[2022-05-07 17:06] LABS: HEPATITIS B SURFACE ANTIGEN NEGATIVE
[2022-05-07] MEDS ORDERED: SODIUM CHLORIDE 0.9% 250 ML IV ONE (18:45)
[2022-05-07] MEDS: ONDANSETRON HCL 4MG/2ML INJ IV PRN (19:50)
[2022-05-08 00:29] VITALS: BP 128/71
[2022-05-08 04:05] VITALS: BP 177/76
[2022-05-08] MEDS: BLOOD SUGAR DIAGNOSTIC STRIP TEST SCH (06:02)
[2022-05-08] MEDS: ONDANSETRON HCL 4MG/2ML INJ IV PRN (07:02)
[2022-05-08 07:47] VITALS: BP 164/69
[2022-05-08] MEDS: LOSARTAN POTASSIUM 50 MG TABLET PO SCH (07:55)
[2022-05-08] MEDS: AMLODIPINE 10MG TABLET PO SCH (07:55)
[2022-05-08] MEDS: INSULIN LISPRO 100 UNITS/ML SUBCUT SCH (07:55)
[2022-05-08] MEDS: CLONIDINE 0.3MG TABLET PO SCH (07:55)
[2022-05-08] MEDS ORDERED: CLON0.2T MT ×3 (08:19→10:05)
[2022-05-08] MEDS ORDERED: HYDR100T26 MT (08:19)
[2022-05-08] MEDS ORDERED: HYDRALAZINE HCL 50MG TABLET PO NR (08:30)
[2022-05-08 08:54] VITALS: BP 164/95
[2022-05-08] MEDS ORDERED: CLONIDINE 0.2MG TABLET PO SCH (09:00)
[2022-05-08] MEDS ORDERED: HYDRALAZINE HCL 50MG TABLET PO SCH (21:00)
== END 2022-05-08 10:30 | disposition home or self-care (01) | DRG 207 ==
LOC: ER 15:57 → EDBEDREQTM 05-06 03:23 → EDBEDREQ 05-06 03:23 → MICUSO 05-06 13:06 → 3WST 05-06 15:43
PROVIDERS: ADMIT Internal Medicine; ATTEND Internal Medicine
PROC: 5A1D70Z Performance of Urinary Filtration, Intermittent, Less than 6 Hours Per Day (ICD-10-PCS; principal; 2022-05-07)
DX: I95.3 Hypotension of hemodialysis (principal); I13.2 Hypertensive heart and chronic kidney disease with heart failure and with stage 5 chronic kidney disease, or end stage renal disease; E44.0 Moderate protein-calorie malnutrition; N18.6 End stage renal disease; E87.1 Hypo-osmolality and hyponatremia; E11.22 Type 2 diabetes mellitus with diabetic chronic kidney disease; N25.81 Secondary hyperparathyroidism of renal origin; E11.65 Type 2 diabetes mellitus with hyperglycemia; I50.9 Heart failure, unspecified; K21.9 Gastro-esophageal reflux disease without esophagitis; E66.9 Obesity, unspecified; I25.10 Atherosclerotic heart disease of native coronary artery without angina pectoris; Z88.8 Allergy status to other drugs, medicaments and biological substances; Z99.2 Dependence on renal dialysis; Z79.899 Other long term (current) drug therapy; Z91.15 Patient's noncompliance with renal dialysis; I25.2 Old myocardial infarction; Z68.26 Body mass index [BMI] 26.0-26.9, adult; Z79.4 Long term (current) use of insulin; Z87.01 Personal history of pneumonia (recurrent); Z82.49 Family history of ischemic heart disease and other diseases of the circulatory system
CPT/HCPCS: 36415; 71045; 71275; 80048; 80053; 82962; 83605; 84100; 84484; 85025; 86705; 86709; 86803; 87340; 90935; 93005; 97162; 97166; 99285; J0360; J1815; J2405; Q9967

== ENCOUNTER 2022-05-11 12:58 | Inpatient (IN) | payer MEDICARE, MEDICAID ==
[~2022-05-11] VITALS: Ht 165.1 cm; Wt 76.2 kg
[~2022-05-11 12:58] MED LIST changes: -ALLO100T MT; -AMIT25TA9 MT; +AMLO10TA80 PO; -CALC-4 PO; +CALC667C PO; +CLON0.2T MT; -GLIP10TA10 PO; +HYDR100T26 MT; -ISOS60TA76 PO; +LOSA50TA41 PO; -MAGN200T5 PO
[2022-05-11] MEDS ORDERED: ASPIRIN 81MG TABLET PO ONE (14:30)
[2022-05-11 15:25] LABS: CHLORIDE 95 mEq/L (98-107)
[2022-05-11 15:28] LABS: BASOPHILS % 0.8 % (0.0-2.0); EOSINOPHILS % 0.3 % (0.0-5.0); HEMATOCRIT. 42.1 % (36.0-48.0); LYMPHOCYTES % 18.2 % (20.0-50.0); MEAN CORPUSCULAR HEMOGLOBIN 30.8 pg (28.0-32.0); MEAN CORPUSCULAR VOLUME 92.7 fL (81.0-99.0); MEAN PLATELET VOLUME 8.9 fl (7.4-10.4); MONOCYTES % 2.3 % (2.0-8.0); NEUTROPHILS % 78.4 % (40.0-76.0); PLATELET 230 x1000/uL (130-400); RED BLOOD CELL COUNT 4.54 mill/uL (4.2-5.4); RED CELL DISTRIBUTION WIDTH 13.9 % (11.6-14.6)
[2022-05-11 15:37] LABS: BETA HYDROXYBUTYRATE 1.8 mMol/L (0.0-0.3)
[2022-05-11] MEDS ORDERED: INSULIN REGULAR (HUMULIN R) 300UNITS/3ML VIAL IV ONE (16:00)
[2022-05-11] MEDS ORDERED: ALBUTEROL (0.083%) 2.5MG/3ML NEB HHN ONE (16:00)
[2022-05-11] MEDS ORDERED: SODIUM BICARBONATE 8.4% 1 MEQ/ML 50ML SYR IV ONE (16:00)
[2022-05-11] MEDS ORDERED: SODIUM POLYSTYRENE SULFONATE 15 G/60 ML BOT PO ONE (16:00)
[2022-05-11 16:35] LABS: CLARITY URINE CLEAR (CLEAR); COLOR URINE YELLOW (YELLOW); KETONES URINE 1+ (NEGATIVE); LEUKOCYTE ESTERASE URINE NEGATIVE (NEGATIVE); NITRITE URINE NEGATIVE (NEGATIVE); OCCULT BLOOD URINE TRACE (NEGATIVE); PROTEIN URINE 4+ (NEGATIVE); SPECIFIC GRAVITY URINE 1.024 (1.005-1.030); UROBILINOGEN URINE 0.2 E.U./dL (0.2-1.0)
[2022-05-11] MEDS ORDERED: ASPIRIN 81MG TABLET PO NR (17:00)
[2022-05-11] MEDS ORDERED: CLONIDINE 0.1MG TABLET PO ONE (17:45)
[2022-05-11] MEDS ORDERED: ALBUTEROL (0.083%) 2.5MG/3ML NEB ONE (17:50)
[2022-05-11] MEDS ORDERED: ALBUTEROL (0.5%) 2.5MG/0.5ML NEB HHN ONE (17:51)
[2022-05-11] MEDS ORDERED: INSULIN LISPRO 100 UNITS/ML SUBCUT NR (21:00)
[2022-05-12] VITALS (14 sets, daily range): BP systolic 131–183; BP diastolic 74–98
[2022-05-12] MEDS ORDERED: CLONIDINE 0.1MG TABLET PO NR (03:15)
[2022-05-12] MEDS ORDERED: MORPHINE SULFATE 2 MG/ML CPJ (NOT FOR IM USE) IV PRN (04:00)
[2022-05-12] MEDS ORDERED: DEXTROSE 50% WATER 50ML SYRINGE IV PRN ×2 (04:45→09:30)
[2022-05-12] MEDS ORDERED: ONDANSETRON HCL 4MG/2ML INJ IV PRN (04:45)
[2022-05-12] MEDS ORDERED: ACETAMINOPHEN 325MG TABLET PO PRN (04:45)
[2022-05-12] MEDS: CLONIDINE 0.1MG TABLET PO PRN (07:20)
[2022-05-12] MEDS ORDERED: LOSARTAN POTASSIUM 50 MG TABLET PO SCH (09:30)
[2022-05-12] MEDS: HYDRALAZINE HCL 50MG TABLET PO SCH ×3 (09:40→17:46)
[2022-05-12] MEDS: BLOOD SUGAR DIAGNOSTIC STRIP TEST SCH ×4 (09:46→21:00)
[2022-05-12] MEDS: INSULIN LISPRO 100 UNITS/ML SUBCUT SCH ×4 (09:52→22:57)
[2022-05-12] MEDS ORDERED: AMLODIPINE 10MG TABLET PO SCH (13:15)
[2022-05-12] MEDS: AMLODIPINE 10MG TABLET PO SCH (13:27)
[2022-05-12] MEDS: OMEPRAZOLE 20MG CAPSULE EXTENDED RELEASE PO SCH (16:22)
[2022-05-12] MEDS: CALCIUM ACETATE 667MG CAPSULE PO SCH (17:45)
[2022-05-12] MEDS ORDERED: CARVEDILOL 6.25 MG TABLET PO SCH (21:00)
[2022-05-12] MEDS: IPRATROPIUM/ALBUTEROL 0.5-3(2.5)MG/3ML NEB HHN SCH (21:34)
[2022-05-12] MEDS ORDERED: ALTEPLASE 2MG/VIAL ITC ONE ×2 (22:45)
[2022-05-12] MEDS: LOSARTAN POTASSIUM 50 MG TABLET PO SCH (22:53)
[2022-05-12] MEDS: CARVEDILOL 6.25 MG TABLET PO SCH (22:54)
[2022-05-12] MEDS: INSULIN GLARGINE 100 UNITS/ML SUBCUT SCH (22:59)
[2022-05-13] VITALS (22 sets, daily range): BP systolic 112–192; BP diastolic 60–91
[2022-05-13] MEDS: IPRATROPIUM/ALBUTEROL 0.5-3(2.5)MG/3ML NEB HHN SCH ×3 (02:50→21:01)
[2022-05-13] MEDS: CLONIDINE 0.1MG TABLET PO PRN (04:29)
[2022-05-13 07:11] LABS: BASOPHILS % 0.7 % (0.0-2.0); EOSINOPHILS % 1.8 % (0.0-5.0); HEMATOCRIT. 37.3 % (36.0-48.0); HEMOGLOBIN. 12.6 g/dL (12.0-16.0); LYMPHOCYTES % 29.5 % (20.0-50.0); MEAN CORPUSCULAR HEMOGLOBIN 30.5 pg (28.0-32.0); MEAN CORPUSCULAR VOLUME 90.4 fL (81.0-99.0); MEAN PLATELET VOLUME 8.9 fl (7.4-10.4); MONOCYTES % 5.7 % (2.0-8.0); NEUTROPHILS % 62.3 % (40.0-76.0); PLATELET 229 x1000/uL (130-400); RED BLOOD CELL COUNT 4.13 mill/uL (4.2-5.4); RED CELL DISTRIBUTION WIDTH 13.7 % (11.6-14.6)
[2022-05-13] MEDS: BLOOD SUGAR DIAGNOSTIC STRIP TEST SCH ×4 (07:30→21:55)
[2022-05-13] MEDS: INSULIN LISPRO 100 UNITS/ML SUBCUT SCH ×4 (08:00→21:53)
[2022-05-13 08:30] LABS: PHOSPHORUS 5.9 mg/dL (2.5-4.9)
[2022-05-13] MEDS: CARVEDILOL 6.25 MG TABLET PO SCH ×2 (08:49→21:54)
[2022-05-13] MEDS: AMLODIPINE 10MG TABLET PO SCH (08:49)
[2022-05-13] MEDS: LOSARTAN POTASSIUM 50 MG TABLET PO SCH ×2 (08:49→21:55)
[2022-05-13] MEDS: FOLIC ACID/VITAMIN B COMP W-C TABLET PO SCH (08:49)
[2022-05-13] MEDS: CALCIUM ACETATE 667MG CAPSULE PO SCH ×3 (08:49→17:23)
[2022-05-13] MEDS: OMEPRAZOLE 20MG CAPSULE EXTENDED RELEASE PO SCH (08:50)
[2022-05-13] MEDS: HYDRALAZINE HCL 50MG TABLET PO SCH ×3 (08:50→17:00)
[2022-05-13] MEDS: CLONIDINE 0.1MG TABLET PO SCH ×2 (10:02→21:55)
[2022-05-13] MEDS: INSULIN GLARGINE 100 UNITS/ML SUBCUT SCH ×2 (10:05→21:52)
[2022-05-13] MEDS ORDERED: HEPARIN 1000 UNITS/ML 10ML ONE (12:45)
[2022-05-13] MEDS ORDERED: FENTANYL CITRATE/PF 50MCG/ML 2ML VIAL ONE (12:45)
[2022-05-13] MEDS ORDERED: CEFAZOLIN 1000MG PREMIX 50 ML IV NR (12:45)
[2022-05-13] MEDS ORDERED: LIDOCAINE HCL 1% 10 MG/ML 10ML VIAL ONE (12:45)
[2022-05-13 13:04] LABS: PROTHROMBIN TIME 10.3 sec (9.6-11.0)
[2022-05-13] MEDS ORDERED: FENTANYL CITRATE/PF 50MCG/ML 2ML VIAL IV ONE (13:30)
[2022-05-13] MEDS ORDERED: HEPARIN SODIUM 1,000 UNIT/1ML VIAL IV NR (16:15)
[2022-05-14] VITALS (11 sets, daily range): BP systolic 116–178; BP diastolic 68–102
[2022-05-14] MEDS: IPRATROPIUM/ALBUTEROL 0.5-3(2.5)MG/3ML NEB HHN SCH ×3 (02:52→15:04)
[2022-05-14 06:00] LABS: BASOPHILS % 0.7 % (0.0-2.0); HEMATOCRIT. 37.8 % (36.0-48.0); HEMOGLOBIN. 12.6 g/dL (12.0-16.0); LYMPHOCYTES % 31.4 % (20.0-50.0); MEAN CORPUSCULAR HEMOGLOBIN 29.9 pg (28.0-32.0); MEAN CORPUSCULAR VOLUME 89.9 fL (81.0-99.0); MEAN PLATELET VOLUME 8.6 fl (7.4-10.4); MONOCYTES % 7.2 % (2.0-8.0); NEUTROPHILS % 58.7 % (40.0-76.0); PLATELET 222 x1000/uL (130-400); RED CELL DISTRIBUTION WIDTH 13.6 % (11.6-14.6)
[2022-05-14 06:16] LABS: PHOSPHORUS 4.5 mg/dL (2.5-4.9)
[2022-05-14] MEDS: BLOOD SUGAR DIAGNOSTIC STRIP TEST SCH ×4 (07:35→17:59)
[2022-05-14] MEDS: INSULIN LISPRO 100 UNITS/ML SUBCUT SCH ×4 (07:36→18:09)
[2022-05-14] MEDS: CLONIDINE 0.1MG TABLET PO SCH (09:03)
[2022-05-14] MEDS: AMLODIPINE 10MG TABLET PO SCH (09:03)
[2022-05-14] MEDS: LOSARTAN POTASSIUM 50 MG TABLET PO SCH (09:03)
[2022-05-14] MEDS: FOLIC ACID/VITAMIN B COMP W-C TABLET PO SCH (09:03)
[2022-05-14] MEDS: CARVEDILOL 6.25 MG TABLET PO SCH (09:04)
[2022-05-14] MEDS: HYDRALAZINE HCL 50MG TABLET PO SCH ×4 (09:04→18:06)
[2022-05-14] MEDS: OMEPRAZOLE 20MG CAPSULE EXTENDED RELEASE PO SCH (09:04)
[2022-05-14] MEDS: CALCIUM ACETATE 667MG CAPSULE PO SCH ×4 (09:07→18:05)
[2022-05-14] MEDS ORDERED: NIFEDIPINE XL 60MG TAB PO SCH ×2 (09:30→21:00)
[2022-05-14] MEDS: INSULIN GLARGINE 100 UNITS/ML SUBCUT SCH (10:32)
[2022-05-14] MEDS ORDERED: CLONIDINE 0.2MG TABLET PO SCH (21:00)
[2022-05-15] MEDS ORDERED: FAMOTIDINE 20MG TABLET PO SCH (09:00)
== END 2022-05-15 00:29 | disposition home or self-care (01) | DRG 425 ==
LOC: ER 12:58 → EDBEDREQ 15:54 → EDBEDREQTM 15:54 → MICUSO 18:05 → EDBEDREQSVC 19:38 → EDBEDREQ 19:38 → 5EST 05-12 09:31
PROVIDERS: ADMIT Internal Medicine; ATTEND Internal Medicine
PROC: 5A1D70Z Performance of Urinary Filtration, Intermittent, Less than 6 Hours Per Day (ICD-10-PCS; 2022-05-12)
PROC: 0J2TXYZ Change Other Device in Trunk Subcutaneous Tissue and Fascia, External Approach (ICD-10-PCS; principal; 2022-05-13)
PROC: 5A1D70Z Performance of Urinary Filtration, Intermittent, Less than 6 Hours Per Day (ICD-10-PCS; 2022-05-13)
DX: E87.5 Hyperkalemia (principal); I21.4 Non-ST elevation (NSTEMI) myocardial infarction; I50.33 Acute on chronic diastolic (congestive) heart failure; E44.0 Moderate protein-calorie malnutrition; N18.6 End stage renal disease; E87.1 Hypo-osmolality and hyponatremia; I13.2 Hypertensive heart and chronic kidney disease with heart failure and with stage 5 chronic kidney disease, or end stage renal disease; Z20.822 Contact with and (suspected) exposure to COVID-19; E11.65 Type 2 diabetes mellitus with hyperglycemia; N25.81 Secondary hyperparathyroidism of renal origin; E11.22 Type 2 diabetes mellitus with diabetic chronic kidney disease; I25.10 Atherosclerotic heart disease of native coronary artery without angina pectoris; J44.9 Chronic obstructive pulmonary disease, unspecified; E78.5 Hyperlipidemia, unspecified; I25.2 Old myocardial infarction; Z99.2 Dependence on renal dialysis; Z82.49 Family history of ischemic heart disease and other diseases of the circulatory system; Z79.82 Long term (current) use of aspirin; Z79.899 Other long term (current) drug therapy; Z68.28 Body mass index [BMI] 28.0-28.9, adult
CPT/HCPCS: 36415; 36558; 71045; 77001; 80048; 80053; 81003; 82010; 82962; 83036; 84100; 84484; 85025; 87426; 90935; 93005; 94640; 99152; 99153; 99291; C1750; C1769; J0690; J1644; J1815; J2405; J2997; J3010; J3490; G0500

== ENCOUNTER 2022-07-23 11:16 | Inpatient (IN) | payer MEDICARE, MEDICAID ==
[~2022-07-23] VITALS: Ht 172.7 cm; Wt 79.8 kg
[2022-07-23] MEDS ORDERED: SODIUM CHLORIDE 0.9% 1,000 ML IV ONE (12:00)
[2022-07-23 12:09] LABS: HEMATOCRIT. 37.1 % (36.0-48.0); HEMOGLOBIN. 12.2 g/dL (12.0-16.0); LYMPHOCYTES % 25.3 % (20.0-50.0); MEAN CORPUSCULAR HEMOGLOBIN 30.8 pg (28.0-32.0); MEAN CORPUSCULAR VOLUME 93.8 fL (81.0-99.0); MEAN PLATELET VOLUME 8.8 fl (7.4-10.4); MONOCYTES % 5.4 % (2.0-8.0); NEUTROPHILS % 67.3 % (40.0-76.0); PLATELET 255 x1000/uL (130-400); RED BLOOD CELL COUNT 3.95 mill/uL (4.2-5.4); RED CELL DISTRIBUTION WIDTH 12.9 % (11.6-14.6)
[2022-07-23 12:26] LABS: CHLORIDE 97 mEq/L (98-107)
[2022-07-23] MEDS ORDERED: IPRATROPIUM BROMIDE (0.02%) 0.5MG/2.5ML NEB HHN STA (12:41)
[2022-07-23] MEDS ORDERED: METHYLPREDNISOLONE SOD SUCC 125 MG/2 ML VIAL IV STA (12:41)
[2022-07-23 12:43] LABS: INR 0.9; PARTIAL THROMBOPLASTIN TIME 39.9 sec (23.4-31.0)
[2022-07-23] MEDS ORDERED: ASPIRIN 81MG TABLET PO ONE (12:45)
[2022-07-23] MEDS: ALBUTEROL (0.083%) 2.5MG/3ML NEB HHN SCH ×3 (12:56→13:59)
[2022-07-23] MEDS ORDERED: DEXTROSE 50% WATER 50ML SYRINGE IV PRN (18:00)
[2022-07-23] MEDS: BLOOD SUGAR DIAGNOSTIC STRIP TEST SCH ×2 (18:15→21:00)
[2022-07-23] MEDS: INSULIN LISPRO 100 UNITS/ML SUBCUT SCH ×2 (18:19→21:57)
[2022-07-23 20:00] VITALS: BP 206/69
[2022-07-23] MEDS ORDERED: ALBUTEROL (0.083%) 2.5MG/3ML NEB HHN PRN (22:45)
[2022-07-23] MEDS ORDERED: INSULIN GLARGINE 100 UNITS/ML SUBCUT SCH (23:00)
[2022-07-23] MEDS: CLONIDINE 0.2MG TABLET PO SCH (23:14)
[2022-07-23] MEDS: LOSARTAN POTASSIUM 100 MG TABLET PO SCH (23:14)
[2022-07-24] VITALS (16 sets, daily range): BP systolic 102–193; BP diastolic 43–69
[2022-07-24 00:16] LABS: CREATINE KINASE MB FRACTION 4.4 ng/mL (0.5-3.6)
[2022-07-24] MEDS: ALBUTEROL (0.083%) 2.5MG/3ML NEB HHN SCH ×6 (00:22→20:29)
[2022-07-24 00:35] LABS: HEPATITIS B SURFACE ANTIGEN NEGATIVE
[2022-07-24] MEDS: BLOOD SUGAR DIAGNOSTIC STRIP TEST SCH ×4 (05:51→21:00)
[2022-07-24] MEDS: INSULIN LISPRO 100 UNITS/ML SUBCUT SCH ×4 (06:05→21:00)
[2022-07-24 07:44] LABS: CREATINE KINASE MB FRACTION 2.9 ng/mL (0.5-3.6)
[2022-07-24] MEDS: FUROSEMIDE 100MG/10ML VIAL IVP SCH (08:39)
[2022-07-24] MEDS: CLONIDINE 0.2MG TABLET PO SCH ×2 (08:39→17:46)
[2022-07-24] MEDS: LOSARTAN POTASSIUM 100 MG TABLET PO SCH (08:40)
[2022-07-24] MEDS: HEPARIN 5000 UNITS/ML VIAL SUBCUT SCH (08:48)
[2022-07-24] MEDS: IPRATROPIUM BROMIDE (0.02%) 0.5MG/2.5ML NEB HHN SCH ×3 (12:41→20:29)
[2022-07-24] MEDS: HYDRALAZINE HCL 50MG TABLET PO SCH ×2 (14:00→20:20)
[2022-07-24] MEDS ORDERED: IPRATROPIUM/ALBUTEROL 0.5-3(2.5)MG/3ML NEB HHN SCH (16:00)
[2022-07-24 18:04] LABS: PHOSPHORUS 5.5 mg/dL (2.5-4.9)
[2022-07-24] MEDS: AMLODIPINE 10MG TABLET PO SCH (20:20)
[2022-07-24] MEDS: CARVEDILOL 6.25 MG TABLET PO SCH ×2 (20:20→21:00)
[2022-07-24] MEDS ORDERED: ATORVASTATIN CALCIUM 20MG TABLET PO SCH (21:00)
[2022-07-24] MEDS ORDERED: ONDANSETRON HCL 4MG/2ML INJ IV PRN (21:15)
[2022-07-24] MEDS: INSULIN GLARGINE 100 UNITS/ML SUBCUT SCH (22:00)
[2022-07-25] VITALS: BP 156/63
[2022-07-25] MEDS: AMLODIPINE 10MG TABLET PO SCH (00:15)
[2022-07-25] MEDS: HEPARIN 5000 UNITS/ML VIAL SUBCUT SCH ×2 (00:17→08:29)
[2022-07-25] MEDS: ALBUTEROL (0.083%) 2.5MG/3ML NEB HHN SCH ×4 (00:49→14:00)
[2022-07-25] MEDS: IPRATROPIUM BROMIDE (0.02%) 0.5MG/2.5ML NEB HHN SCH ×4 (00:49→14:01)
[2022-07-25 04:00] VITALS: BP 176/78
[2022-07-25] MEDS: HYDRALAZINE HCL 50MG TABLET PO SCH (05:17)
[2022-07-25] MEDS: BLOOD SUGAR DIAGNOSTIC STRIP TEST SCH ×2 (06:12→11:40)
[2022-07-25] MEDS: INSULIN LISPRO 100 UNITS/ML SUBCUT SCH ×2 (06:16→13:28)
[2022-07-25 08:00] VITALS: BP 181/70
[2022-07-25] MEDS: CARVEDILOL 6.25 MG TABLET PO SCH (08:28)
[2022-07-25] MEDS: CLONIDINE 0.2MG TABLET PO SCH (08:29)
[2022-07-25] MEDS: LOSARTAN POTASSIUM 100 MG TABLET PO SCH (08:29)
[2022-07-25] MEDS: FUROSEMIDE 100MG/10ML VIAL IVP SCH (08:29)
[2022-07-25] MEDS ORDERED: FOLIC ACID/VITAMIN B COMP W-C TABLET PO SCH (09:00)
[2022-07-25] MEDS ORDERED: ASPIRIN 81MG TABLET PO SCH (09:00)
[2022-07-25] MEDS: INSULIN GLARGINE 100 UNITS/ML SUBCUT SCH (09:26)
[2022-07-25 12:00] VITALS: BP 136/62
[2022-07-25 12:50] VITALS: BP 136/62
[2022-07-25] MEDS ORDERED: HYDRALAZINE HCL 25MG TABLET PO SCH (14:00)
[2022-07-25] MEDS ORDERED: HYDRALAZINE HCL 100MG TABLET PO SCH (14:00)
== END 2022-07-25 16:36 | disposition home or self-care (01) | DRG 140 ==
LOC: ER 11:25 → 7EST 15:43
PROVIDERS: ADMIT Internal Medicine; ATTEND Internal Medicine
PROC: 5A1D70Z Performance of Urinary Filtration, Intermittent, Less than 6 Hours Per Day (ICD-10-PCS; principal; 2022-07-24)
DX: J44.1 Chronic obstructive pulmonary disease with (acute) exacerbation (principal); I13.2 Hypertensive heart and chronic kidney disease with heart failure and with stage 5 chronic kidney disease, or end stage renal disease; E11.22 Type 2 diabetes mellitus with diabetic chronic kidney disease; E87.1 Hypo-osmolality and hyponatremia; N18.6 End stage renal disease; E11.51 Type 2 diabetes mellitus with diabetic peripheral angiopathy without gangrene; I50.9 Heart failure, unspecified; E11.65 Type 2 diabetes mellitus with hyperglycemia; E78.5 Hyperlipidemia, unspecified; I25.10 Atherosclerotic heart disease of native coronary artery without angina pectoris; M19.90 Unspecified osteoarthritis, unspecified site; K21.9 Gastro-esophageal reflux disease without esophagitis; N25.81 Secondary hyperparathyroidism of renal origin; Z79.4 Long term (current) use of insulin; Z79.899 Other long term (current) drug therapy; Z99.2 Dependence on renal dialysis; Z82.49 Family history of ischemic heart disease and other diseases of the circulatory system
CPT/HCPCS: 36415; 71045; 80053; 82010; 82550; 82553; 82962; 83036; 83880; 84100; 84484; 85025; 86803; 87340; 90935; 93005; 94640; 99291; J1644; J1815; J1940; J2930; J7030